=== PATIENT | female | born 1965 | race Caucasian/White ===

== ENCOUNTER 2018-03-09 17:55 | Inpatient (IN) | payer MEDICAID ==
[~2018-03-09] VITALS: Ht 160 cm; Wt 50.0 kg
[2018-03-09] MEDS ORDERED: ketorolac trometh. 30mg/ml inj. IV ONE (21:00)
[2018-03-09] MEDS ORDERED: famotidine/PF 10 mg/ml inj IV ONE (21:00)
[2018-03-09] MEDS ORDERED: metoclopramide 5 mg/ml inj IV ONE (21:00)
[2018-03-09] MEDS ORDERED: normal saline 1000ML IV soln IVB ONE (21:00)
[2018-03-09] MEDS ORDERED: diphenhydrAMINE 50 mg/ml inj IV ONE (21:00)
[2018-03-09] MEDS ORDERED: albuterol 2.5 MG/3 ML nebule NEB ONE (21:00)
[2018-03-09 21:33] LABS: BASOPHILS # (AUTO) 0.1 X10'3 (0-0.2); BASOPHILS % (AUTO) 1.7 % (0-1); EOSINOPHILS # (AUTO) 0.1 X10'3 (0-0.9); EOSINOPHILS % (AUTO) 2.4 % (0-6); HEMATOCRIT 33.4 % (35.0-45.0); HEMOGLOBIN 11.8 g/dl (12.0-16.0); LYMPHOCYTES # (AUTO) 0.6 X10'3 (1.1-4.8); LYMPHOCYTES % (AUTO) 18.6 % (21-51); MEAN CORPUSCULAR HGB CONC 35.5 % (33.0-36.5); MEAN PLATELET VOLUME 6.5 FL (7.4-10.4); MONOCYTES # (AUTO) 0.4 X10'3 (0-0.9); NEUTROPHILS # (AUTO) 2.1 X10'3 (1.8-7.7); NEUTROPHILS % (AUTO) 64.3 % (42-75); PLATELET COUNT 261 X10'3 (140-440); RED BLOOD COUNT 3.59 X10'6 (4.20-5.60); RED CELL DISTRIBUTION WIDTH 11.9 % (11.5-14.5); WHITE BLOOD COUNT 3.3 X10'3 (4.5-11.0)
[2018-03-09 21:46] LABS: ALANINE AMINOTRANSFERASE 29 U/L (12-78); ALBUMIN 3.9 G/DL (3.4-5.0); ALBUMIN/GLOBULIN RATIO 1.2 (1.1-1.5); ALKALINE PHOSPHATASE 66 IU/L (46-116); ANION GAP 7 (8-16); ASPARTATE AMINO TRANSFERASE 24 U/L (10-37); BLOOD UREA NITROGEN 7 MG/DL (7-18); BUN/CREATININE RATIO 14.3 (6.6-38.0); CALCIUM 9.1 MG/DL (8.5-10.1); CHLORIDE 90 MMOL/L (99-107); CREATININE 0.49 MG/DL (0.40-0.90); GLUCOSE 98 MG/DL (70-104); POTASSIUM 4.1 MMOL/L (3.5-5.1); SODIUM 124 MMOL/L (135-145); TOTAL CARBON DIOXIDE 27.1 MMOL/L (24-32); TOTAL PROTEIN 7.1 G/DL (6.4-8.2); eGFR > 90 ML/MIN
[2018-03-09] MEDS: normal saline 1000ml 1,000 ML IV SCH (22:28)
[2018-03-09] MEDS ORDERED: diphenhydrAMINE 25mg capsule PO PRN (22:30)
[2018-03-09] MEDS ORDERED: thiamine 100mg/ml 2ml inj. IV ONE (22:30)
[2018-03-09] MEDS ORDERED: haloperidol lactate 5mg/ml inj IM PRN (22:30)
[2018-03-09] MEDS ORDERED: LORazepam 1 MG tablet PO PRN (22:30)
[2018-03-09] MEDS ORDERED: haloperidol 5mg tablet PO PRN (22:30)
[2018-03-09] MEDS ORDERED: diphenhydrAMINE 50 mg/ml inj IV PRN (22:30)
[2018-03-09] MEDS ORDERED: HYDROmorphone inj. 0.5 MG/0.5 ML DISP.SYRIN IV PRN ×2 (22:30)
[2018-03-09] MEDS ORDERED: magnesium hydroxide 30ml (MOM) UD suspension PO PRN (22:30)
[2018-03-09] MEDS ORDERED: mag hydrox/Alum hydrox/simeth 30ml oral suspension PO PRN (22:30)
[2018-03-09] MEDS ORDERED: acetaminophen 325mg tablet PO PRN (22:30)
[2018-03-09] MEDS ORDERED: dextrose 50%-water 50ml dispensing syringe IV PRN (22:30)
[2018-03-09] MEDS ORDERED: loperamide 2mg capsule PO PRN ×2 (22:30)
[2018-03-09] MEDS ORDERED: morphine 4 MG/ML inj SYRINge IV PRN ×2 (22:30)
[2018-03-09] MEDS ORDERED: cloNIDine 0.1 mg tablet PO PRN (22:30)
[2018-03-09] MEDS ORDERED: acetaminophen 650mg rectal suppository RC PRN (22:30)
[2018-03-09] MEDS ORDERED: dicyclomine 10 MG capsule PO PRN (22:30)
[2018-03-09] MEDS ORDERED: cyclobenzaprine 10mg tablet PO PRN (22:30)
[2018-03-09] MEDS ORDERED: bisacodyl 10mg suppository rectal RC PRN (22:30)
[2018-03-09 22:58] LABS: PARTIAL THROMBOPLASTIN TIME 26 SECONDS (22-32); PROTHROMBIN TIME 10.2 SECONDS (9.0-12.0)
[2018-03-09 23:01] LABS: HEMOGLOBIN A1C 4.9 % (4.5-6.2)
[2018-03-09] MEDS ORDERED: CLON-528 PO (23:02)
[2018-03-09] MEDS ORDERED: CITA-278 PO (23:02)
[2018-03-09] MEDS ORDERED: TRAZ-143 PO (23:02)
[2018-03-09 23:10] LABS: ETHANOL < 0.010 GM/DL (0.0-0.010); LIPASE 208 U/L (73-393); MAGNESIUM 1.8 MG/DL (1.5-2.4); PHOSPHORUS 4.3 MG/DL (2.3-4.5); TROPONIN I < 0.04 NG/ML (0.0-0.05)
[2018-03-09 23:30] VITALS: BP 174/97
[2018-03-09] MEDS: nicotine 21mg patch - 24 hr TD SCH (23:52)
[2018-03-09] MEDS: LORazepam 2 mg/ml vial IV PRN (23:52)
[2018-03-10 04:39] LABS: BASOPHILS % (AUTO) 1.1 % (0-1); EOSINOPHILS # (AUTO) 0.1 X10'3 (0-0.9); EOSINOPHILS % (AUTO) 3.2 % (0-6); HEMATOCRIT 34.3 % (35.0-45.0); LYMPHOCYTES # (AUTO) 0.8 X10'3 (1.1-4.8); LYMPHOCYTES % (AUTO) 21.5 % (21-51); MEAN CORPUSCULAR HEMOGLOBIN 32.8 PG (27.0-31.0); MEAN CORPUSCULAR HGB CONC 34.9 % (33.0-36.5); MEAN CORPUSCULAR VOLUME 93.9 FL (78-98); MEAN PLATELET VOLUME 6.7 FL (7.4-10.4); MONOCYTES # (AUTO) 0.4 X10'3 (0-0.9); MONOCYTES % (AUTO) 10.4 % (2-12); NEUTROPHILS # (AUTO) 2.2 X10'3 (1.8-7.7); NEUTROPHILS % (AUTO) 63.8 % (42-75); PLATELET COUNT 244 X10'3 (140-440); RED BLOOD COUNT 3.65 X10'6 (4.20-5.60); WHITE BLOOD COUNT 3.5 X10'3 (4.5-11.0)
[2018-03-10 05:13] LABS: ALANINE AMINOTRANSFERASE 25 U/L (12-78); ALBUMIN 3.6 G/DL (3.4-5.0); ALBUMIN/GLOBULIN RATIO 1.2 (1.1-1.5); ALKALINE PHOSPHATASE 64 IU/L (46-116); AMYLASE 65 U/L (25-115); ANION GAP 8 (8-16); ASPARTATE AMINO TRANSFERASE 23 U/L (10-37); BILIRUBIN,TOTAL 1.2 MG/DL (0.1-1.0); BLOOD UREA NITROGEN 7 MG/DL (7-18); BUN/CREATININE RATIO 12.7 (6.6-38.0); CALCIUM 8.9 MG/DL (8.5-10.1); CHLORIDE 94 MMOL/L (99-107); CREATININE 0.55 MG/DL (0.40-0.90); GLUCOSE 97 MG/DL (70-104); POTASSIUM 3.4 MMOL/L (3.5-5.1); SODIUM 129 MMOL/L (135-145); TOTAL CARBON DIOXIDE 27.5 MMOL/L (24-32); TOTAL PROTEIN 6.5 G/DL (6.4-8.2); eGFR > 90 ML/MIN
[2018-03-10] MEDS ORDERED: potassium Cl 40MEQ/NS 500ml 500 ML IV PRN ×2 (05:50)
[2018-03-10] MEDS ORDERED: potassium Cl 20 mEq SR tablet PO PRN (05:50)
[2018-03-10 07:01] VITALS: BP 162/98
[2018-03-10] MEDS: multivitamins, therapeutics tablet PO SCH (07:16)
[2018-03-10] MEDS: nicotine 21mg patch - 24 hr TD SCH (07:16)
[2018-03-10] MEDS: folic acid 1mg tablet PO SCH (07:16)
[2018-03-10] MEDS: HYDROcodone/acetaminophen 5mg/325mg tablet PO PRN ×2 (07:29→11:14)
[2018-03-10] MEDS ORDERED: azithromycin 250mg tablet PO SCH (08:00)
[2018-03-10] MEDS: K and/or MAG REPLACEMENT MC SCH (08:00)
[2018-03-10] MEDS ORDERED: docusate sod 100mg capsule PO SCH (08:00)
[2018-03-10] MEDS ORDERED: methylPREDNISolone sod succ 125mg/2ml vial IV SCH (08:00)
[2018-03-10] MEDS: normal saline 1000ml 1,000 ML IV SCH ×2 (09:10→17:25)
[2018-03-10] MEDS: potassium Cl 20 mEq SR tablet PO PRN ×3 (09:10→17:25)
[2018-03-10] MEDS ORDERED: cloNIDine 0.1 mg tablet PO PRN (09:40)
[2018-03-10] MEDS: LORazepam 2 mg/ml vial IV PRN ×3 (11:13→19:05)
[2018-03-10 11:58] VITALS: BP 152/96
[2018-03-10] MEDS: clonazePAM 0.5mg tablet PO SCH ×2 (12:10→21:02)
[2018-03-10] MEDS: HYDROcodone/acetaminophen 10/325mg tab PO PRN ×3 (15:18→23:15)
[2018-03-10] MEDS: ondansetron/PF 4mg/2ml inj IV PRN (17:26)
[2018-03-10 20:00] VITALS: BP 164/97
[2018-03-10] MEDS: temazepam 15mg capsule PO PRN ×2 (21:02→23:15)
[2018-03-11 00:18] VITALS: BP 151/85
[2018-03-11] MEDS: normal saline 1000ml 1,000 ML IV SCH (04:28)
[2018-03-11 05:42] LABS: BASOPHILS % (AUTO) 0.5 % (0-1); HEMATOCRIT 31.5 % (35.0-45.0); LYMPHOCYTES # (AUTO) 0.8 X10'3 (1.1-4.8); LYMPHOCYTES % (AUTO) 17.1 % (21-51); MEAN CORPUSCULAR HEMOGLOBIN 33.2 PG (27.0-31.0); MEAN CORPUSCULAR VOLUME 94.7 FL (78-98); MEAN PLATELET VOLUME 7.2 FL (7.4-10.4); MONOCYTES # (AUTO) 0.5 X10'3 (0-0.9); NEUTROPHILS # (AUTO) 3.1 X10'3 (1.8-7.7); NEUTROPHILS % (AUTO) 69.4 % (42-75); PLATELET COUNT 217 X10'3 (140-440); RED BLOOD COUNT 3.32 X10'6 (4.20-5.60); RED CELL DISTRIBUTION WIDTH 11.9 % (11.5-14.5); WHITE BLOOD COUNT 4.5 X10'3 (4.5-11.0)
[2018-03-11 06:23] LABS: ALANINE AMINOTRANSFERASE 23 U/L (12-78); ALBUMIN 3.3 G/DL (3.4-5.0); ALBUMIN/GLOBULIN RATIO 1.1 (1.1-1.5); ALKALINE PHOSPHATASE 60 IU/L (46-116); AMYLASE 70 U/L (25-115); ANION GAP 8 (8-16); ASPARTATE AMINO TRANSFERASE 17 U/L (10-37); BILIRUBIN,TOTAL 0.9 MG/DL (0.1-1.0); BLOOD UREA NITROGEN 7 MG/DL (7-18); BUN/CREATININE RATIO 14.3 (6.6-38.0); CALCIUM 8.6 MG/DL (8.5-10.1); CHLORIDE 101 MMOL/L (99-107); CREATININE 0.49 MG/DL (0.40-0.90); GLUCOSE 102 MG/DL (70-104); SODIUM 135 MMOL/L (135-145); TOTAL CARBON DIOXIDE 26.2 MMOL/L (24-32); TOTAL PROTEIN 6.2 G/DL (6.4-8.2); eGFR > 90 ML/MIN
[2018-03-11 07:03] VITALS: BP 182/104
[2018-03-11] MEDS: clonazePAM 0.5mg tablet PO SCH (07:10)
[2018-03-11] MEDS: folic acid 1mg tablet PO SCH (07:10)
[2018-03-11] MEDS: HYDROcodone/acetaminophen 5mg/325mg tablet PO PRN ×2 (07:10→11:10)
[2018-03-11] MEDS: multivitamins, therapeutics tablet PO SCH (07:10)
[2018-03-11] MEDS: nicotine 21mg patch - 24 hr TD SCH (07:11)
[2018-03-11] MEDS: ondansetron/PF 4mg/2ml inj IV PRN (07:11)
[2018-03-11] MEDS: K and/or MAG REPLACEMENT MC SCH (07:21)
[2018-03-11 07:27] VITALS: BP 182/104
[2018-03-11] MEDS ORDERED: citalopram 20mg tablet PO SCH (08:00)
[2018-03-11 09:07] VITALS: BP 124/72
[2018-03-11] MEDS ORDERED: ONDA4TAB6 PO (09:51)
[2018-03-11 11:35] VITALS: BP 134/82
[2018-03-11] MEDS ORDERED: traZODone 50mg tablet PO SCH (21:00)
== END 2018-03-11 13:22 | disposition home or self-care (01) | DRG 249 ==
LOC: ER 17:56 → ED HOLD 22:28 → SUR 3N 23:20
PROVIDERS: ADMIT Family Medicine; ATTEND Internal Medicine
DX: A08.4 Viral intestinal infection, unspecified (principal); N17.9 Acute kidney failure, unspecified; E87.1 Hypo-osmolality and hyponatremia; J44.1 Chronic obstructive pulmonary disease with (acute) exacerbation; I10 Essential (primary) hypertension; E86.0 Dehydration; E87.6 Hypokalemia; F10.20 Alcohol dependence, uncomplicated; F17.200 Nicotine dependence, unspecified, uncomplicated; F41.9 Anxiety disorder, unspecified; G89.29 Other chronic pain; Z79.899 Other long term (current) drug therapy
CPT/HCPCS: 36415; 70450; 71045; 80053; 80320; 82150; 82948; 83036; 83605; 83690; 83735; 83880; 84100; 84443; 84484; 85025; 85610; 85730; 87040; 87070; 94640; 94760; 96361; 96374; 96375; 99285; J1200; J1885; J2060; J2405; J2765; J2930; J3411; J3490; J7030; Q0163

== ENCOUNTER 2018-07-28 18:27 | Inpatient (IN) | payer MEDICAID ==
[~2018-07-28] VITALS: Ht 160 cm; Wt 58.0 kg
[~2018-07-28 18:27] MED LIST: CITA-278 PO; CLON-528 PO; ONDA4TAB6 PO; TRAZ-218 PO
[2018-07-28 19:04] LABS: BASOPHILS % (AUTO) 0.1 % (0-1); EOSINOPHILS % (AUTO) 0.8 % (0-6); HEMOGLOBIN 13.2 g/dl (12.0-16.0); LYMPHOCYTES # (AUTO) 0.6 X10'3 (1.1-4.8); LYMPHOCYTES % (AUTO) 10.7 % (21-51); MEAN CORPUSCULAR HEMOGLOBIN 32.1 PG (27.0-31.0); MEAN CORPUSCULAR HGB CONC 35.7 % (33.0-36.5); MEAN PLATELET VOLUME 6.7 FL (7.4-10.4); MONOCYTES # (AUTO) 0.6 X10'3 (0-0.9); NEUTROPHILS # (AUTO) 4.3 X10'3 (1.8-7.7); NEUTROPHILS % (AUTO) 77.4 % (42-75); PLATELET COUNT 293 X10'3 (140-440); RED BLOOD COUNT 4.11 X10'6 (4.20-5.60); RED CELL DISTRIBUTION WIDTH 11.1 % (11.5-14.5); WHITE BLOOD COUNT 5.5 X10'3 (4.5-11.0)
[2018-07-28 19:59] LABS: ANION GAP 5 (8-16); BILIRUBIN,TOTAL 1.5 MG/DL (0.1-1.0); BLOOD UREA NITROGEN 6 MG/DL (7-18); BUN/CREATININE RATIO 11.1 (6.6-38.0); CALCIUM 9.4 MG/DL (8.5-10.1); CREATININE 0.54 MG/DL (0.40-0.90); GLUCOSE 103 MG/DL (70-104); TOTAL CARBON DIOXIDE 31.5 MMOL/L (24-32); TOTAL PROTEIN 7.3 G/DL (6.4-8.2); eGFR > 90 ML/MIN
[2018-07-28 20:00] LABS: ALANINE AMINOTRANSFERASE 54 U/L (12-78); ALBUMIN/GLOBULIN RATIO 1.2 (1.1-1.5); ALKALINE PHOSPHATASE 81 IU/L (46-116); ASPARTATE AMINO TRANSFERASE 80 U/L (10-37)
[2018-07-28 20:08] LABS: CHLORIDE 66 MMOL/L (99-107); POTASSIUM 2.7 MMOL/L (3.5-5.1); SODIUM 102 MMOL/L (135-145)
[2018-07-28] MEDS ORDERED: potassium Cl 10 mEq/100mL bag IV ONE (20:35)
[2018-07-28] MEDS ORDERED: normal saline 1000ml 1,000 ML IV ONE (20:40)
[2018-07-28] MEDS ORDERED: potassium Cl 20 mEq/100mL bag IV ONE (20:40)
[2018-07-28] MEDS ORDERED: normal saline 1000ml 500 ML IV ONE (20:44)
[2018-07-28] MEDS: potassium 10mEq/100ml NS w/LIDOcaine (10mg/bag) IV SCH ×2 (20:52→22:19)
[2018-07-28 21:16] LABS: URINE HCG NEGATIVE (NEG)
[2018-07-28 21:19] LABS: CLARITY,URINE CLEAR (Clear); COLOR,URINE YELLOW (Yellow); GLUCOSE, URINE NEGATIVE (Neg); KETONES,URINE NEGATIVE (Neg); LEUKOCYTE ESTERASE ,URINE NEGATIVE (Neg); NITRITES, URINE NEGATIVE (Neg); OCCULT BLOOD,URINE NEGATIVE (Neg); PH,URINE 5.5 (4.8-8.0); PROTEIN,URINE NEGATIVE (Neg); UROBILINOGEN,URINE 0.2 E.U/dL (0.2-1.0)
[2018-07-28 21:27] LABS: UA COLLECTION TYPE CLN CATCH MIDSTREAM
[2018-07-28] MEDS ORDERED: ondansetron 4mg rapidly disintigrating tab PO ONE (21:55)
[2018-07-28] MEDS ORDERED: HYDROmorphone 1 mg/ml syringe IV ONE (21:55)
[2018-07-28] MEDS ORDERED: ALBU18HF2 INH (22:13)
[2018-07-28] MEDS ORDERED: HCTZ25T (22:15)
[2018-07-28] MEDS ORDERED: IRBE150T51 PO (22:18)
[2018-07-28] MEDS ORDERED: GABA-532 PO (22:18)
[2018-07-28] MEDS ORDERED: IBUP-1984 PO (22:19)
[2018-07-29] VITALS (16 sets, daily range): BP systolic 120–183; BP diastolic 66–93
[2018-07-29] MEDS ORDERED: potassium 10mEq/100ml NS w/LIDOcaine (10mg/bag) IV ONE
[2018-07-29] MEDS ORDERED: LORazepam 2 mg/ml vial IV ONE
[2018-07-29] MEDS ORDERED: ondansetron/PF 4mg/2ml inj IV ONE
[2018-07-29 00:11] LABS: MAGNESIUM 1.5 MG/DL (1.5-2.4)
[2018-07-29] MEDS: magnesium 1gm/100ml D5W IVPB 100 ML IV SCH ×2 (00:11→01:14)
[2018-07-29 02:34] LABS: ALBUMIN 3.6 G/DL (3.4-5.0); ANION GAP 4 (8-16); BLOOD UREA NITROGEN 5 MG/DL (7-18); BUN/CREATININE RATIO 11.1 (6.6-38.0); CHLORIDE 70 MMOL/L (99-107); CREATININE 0.45 MG/DL (0.40-0.90); GLUCOSE 120 MG/DL (70-104); POTASSIUM 3.2 MMOL/L (3.5-5.1); TOTAL CARBON DIOXIDE 30.6 MMOL/L (24-32); eGFR > 90 ML/MIN
[2018-07-29 02:37] LABS: SODIUM 105 MMOL/L (135-145)
[2018-07-29] MEDS ORDERED: sodium chloride 3% IV.soln 100 ML IV ONE (04:30)
[2018-07-29] MEDS: K, MAG and/or Phos replacement - Verify level? MC SCH ×2 (04:35→08:00)
[2018-07-29] MEDS ORDERED: morphine 4 MG/ML inj SYRINge IV PRN (04:35)
[2018-07-29] MEDS ORDERED: potassium Cl 40MEQ/NS 500ml 500 ML IV PRN ×2 (04:35)
[2018-07-29] MEDS ORDERED: acetaminophen 325mg tablet PO PRN (04:35)
[2018-07-29] MEDS: normal saline 1000ml 1,000 ML IV SCH ×3 (06:02→17:26)
[2018-07-29] MEDS: morphine 2 MG/ML inj. syringe IV PRN ×4 (06:09→21:31)
[2018-07-29] MEDS: ondansetron/PF 4mg/2ml inj IV PRN ×3 (06:10→21:30)
[2018-07-29] MEDS: pantoprazole 40 MG vial IV SCH (08:20)
[2018-07-29 08:59] LABS: ALBUMIN 3.6 G/DL (3.4-5.0); ANION GAP 6 (8-16); BLOOD UREA NITROGEN 5 MG/DL (7-18); BUN/CREATININE RATIO 10.2 (6.6-38.0); CALCIUM 7.6 MG/DL (8.5-10.1); CHLORIDE 72 MMOL/L (99-107); CREATININE 0.49 MG/DL (0.40-0.90); GLUCOSE 106 MG/DL (70-104); TOTAL CARBON DIOXIDE 30.1 MMOL/L (24-32); eGFR > 90 ML/MIN
[2018-07-29 09:01] LABS: POTASSIUM 2.9 MMOL/L (3.5-5.1); SODIUM 108 MMOL/L (135-145)
[2018-07-29] MEDS: potassium Cl 20 mEq SR tablet PO PRN ×3 (09:16→23:57)
[2018-07-29] MEDS ORDERED: nicotine 21mg patch - 24 hr TD ONE (11:02)
[2018-07-29] MEDS ORDERED: sodium chloride 3% IV.soln 500 ML IV SCH ×2 (11:05→12:45)
[2018-07-29] MEDS ORDERED: thiamine inj. 100 MG in normal saline 100ml IV soln 100 ML IV ONE (11:30)
[2018-07-29 12:20] LABS: ALBUMIN 3.6 G/DL (3.4-5.0); ANION GAP 6 (8-16); BLOOD UREA NITROGEN 5 MG/DL (7-18); BUN/CREATININE RATIO 9.4 (6.6-38.0); CALCIUM 8.2 MG/DL (8.5-10.1); CHLORIDE 78 MMOL/L (99-107); CREATININE 0.53 MG/DL (0.40-0.90); GLUCOSE 105 MG/DL (70-104); POTASSIUM 3.2 MMOL/L (3.5-5.1); TOTAL CARBON DIOXIDE 29.8 MMOL/L (24-32); eGFR > 90 ML/MIN
[2018-07-29 12:22] LABS: SODIUM 114 MMOL/L (135-145)
[2018-07-29 12:24] LABS: PHOSPHORUS 2.5 MG/DL (2.3-4.5)
[2018-07-29 15:06] LABS: ALBUMIN 3.6 G/DL (3.4-5.0); ANION GAP 5 (8-16); BLOOD UREA NITROGEN 6 MG/DL (7-18); CALCIUM 8.3 MG/DL (8.5-10.1); CHLORIDE 82 MMOL/L (99-107); GLUCOSE 93 MG/DL (70-104); POTASSIUM 3.2 MMOL/L (3.5-5.1); eGFR > 90 ML/MIN
[2018-07-29 15:13] LABS: SODIUM 117 MMOL/L (135-145)
[2018-07-29 18:12] LABS: ALBUMIN 3.5 G/DL (3.4-5.0); AMYLASE 38 U/L (25-115); ANION GAP 7 (8-16); BLOOD UREA NITROGEN 6 MG/DL (7-18); BUN/CREATININE RATIO 11.5 (6.6-38.0); CALCIUM 8.4 MG/DL (8.5-10.1); CHLORIDE 84 MMOL/L (99-107); CREATININE 0.52 MG/DL (0.40-0.90); GLUCOSE 95 MG/DL (70-104); LIPASE 124 U/L (73-393); POTASSIUM 3.7 MMOL/L (3.5-5.1); TOTAL CARBON DIOXIDE 27.4 MMOL/L (24-32); eGFR > 90 ML/MIN
[2018-07-29 18:18] LABS: SODIUM 118 MMOL/L (135-145)
[2018-07-29] MEDS: albuterol 2.5 MG/3 ML nebule NEB PRN (19:07)
[2018-07-29] MEDS: gabapentin 300mg capsule PO SCH (19:59)
[2018-07-29] MEDS: LORazepam 1 MG tablet PO PRN (20:04)
[2018-07-29 20:48] LABS: ALBUMIN 3.3 G/DL (3.4-5.0); ANION GAP 5 (8-16); BLOOD UREA NITROGEN 7 MG/DL (7-18); CALCIUM 7.5 MG/DL (8.5-10.1); CHLORIDE 84 MMOL/L (99-107); CREATININE 0.54 MG/DL (0.40-0.90); GLUCOSE 122 MG/DL (70-104); TOTAL CARBON DIOXIDE 26.4 MMOL/L (24-32); eGFR > 90 ML/MIN
[2018-07-29 20:55] LABS: POTASSIUM 3.5 MMOL/L (3.5-5.1)
[2018-07-29 20:57] LABS: SODIUM 115 MMOL/L (135-145)
[2018-07-29] MEDS: traZODone 50mg tablet PO SCH (21:30)
[2018-07-29 23:30] LABS: ALBUMIN 3.2 G/DL (3.4-5.0); ANION GAP 6 (8-16); BLOOD UREA NITROGEN 6 MG/DL (7-18); BUN/CREATININE RATIO 12.2 (6.6-38.0); CALCIUM 7.9 MG/DL (8.5-10.1); CHLORIDE 86 MMOL/L (99-107); CREATININE 0.49 MG/DL (0.40-0.90); GLUCOSE 107 MG/DL (70-104); POTASSIUM 3.1 MMOL/L (3.5-5.1); TOTAL CARBON DIOXIDE 27.9 MMOL/L (24-32); eGFR > 90 ML/MIN
[2018-07-29 23:40] LABS: SODIUM 120 MMOL/L (135-145)
[2018-07-30 02:00] VITALS: BP 121/73
[2018-07-30] MEDS: normal saline 1000ml 1,000 ML IV SCH ×2 (03:03→16:32)
[2018-07-30 03:15] LABS: BASOPHILS % (AUTO) 0.4 % (0-1); EOSINOPHILS % (AUTO) 1.4 % (0-6); HEMATOCRIT 29.6 % (35.0-45.0); HEMOGLOBIN 10.5 g/dl (12.0-16.0); LYMPHOCYTES # (AUTO) 0.4 X10'3 (1.1-4.8); LYMPHOCYTES % (AUTO) 14.1 % (21-51); MEAN CORPUSCULAR HEMOGLOBIN 31.5 PG (27.0-31.0); MEAN CORPUSCULAR HGB CONC 35.5 % (33.0-36.5); MEAN CORPUSCULAR VOLUME 88.7 FL (78-98); MEAN PLATELET VOLUME 7.3 FL (7.4-10.4); MONOCYTES # (AUTO) 0.4 X10'3 (0-0.9); MONOCYTES % (AUTO) 11.3 % (2-12); NEUTROPHILS # (AUTO) 2.3 X10'3 (1.8-7.7); NEUTROPHILS % (AUTO) 72.8 % (42-75); PLATELET COUNT 177 X10'3 (140-440); RED BLOOD COUNT 3.34 X10'6 (4.20-5.60); RED CELL DISTRIBUTION WIDTH 11.3 % (11.5-14.5); WHITE BLOOD COUNT 3.1 X10'3 (4.5-11.0)
[2018-07-30 03:30] LABS: ALANINE AMINOTRANSFERASE 55 U/L (12-78); ALBUMIN 3.1 G/DL (3.4-5.0); ALBUMIN/GLOBULIN RATIO 1.1 (1.1-1.5); ALKALINE PHOSPHATASE 70 IU/L (46-116); AMYLASE 32 U/L (25-115); ANION GAP 6 (8-16); ASPARTATE AMINO TRANSFERASE 58 U/L (10-37); BILIRUBIN,TOTAL 1.2 MG/DL (0.1-1.0); BLOOD UREA NITROGEN 6 MG/DL (7-18); BUN/CREATININE RATIO 12.8 (6.6-38.0); CALCIUM 7.9 MG/DL (8.5-10.1); CHLORIDE 89 MMOL/L (99-107); CREATININE 0.47 MG/DL (0.40-0.90); GLUCOSE 103 MG/DL (70-104); LIPASE 103 U/L (73-393); MAGNESIUM 1.8 MG/DL (1.5-2.4); PHOSPHORUS 2.8 MG/DL (2.3-4.5); POTASSIUM 3.5 MMOL/L (3.5-5.1); PROTHROMBIN TIME 10.5 SECONDS (9.0-12.0); SODIUM 124 MMOL/L (135-145); TOTAL CARBON DIOXIDE 29.1 MMOL/L (24-32); TOTAL PROTEIN 5.8 G/DL (6.4-8.2); eGFR > 90 ML/MIN
[2018-07-30 06:00] VITALS: BP 110/56
[2018-07-30 07:14] LABS: ALBUMIN 3.1 G/DL (3.4-5.0); ANION GAP 5 (8-16); BLOOD UREA NITROGEN 5 MG/DL (7-18); BUN/CREATININE RATIO 10.4 (6.6-38.0); CALCIUM 8.4 MG/DL (8.5-10.1); CHLORIDE 92 MMOL/L (99-107); CREATININE 0.48 MG/DL (0.40-0.90); GLUCOSE 97 MG/DL (70-104); POTASSIUM 3.6 MMOL/L (3.5-5.1); SODIUM 125 MMOL/L (135-145); TOTAL CARBON DIOXIDE 28.2 MMOL/L (24-32); eGFR > 90 ML/MIN
[2018-07-30] MEDS: gabapentin 300mg capsule PO SCH ×2 (07:37→19:58)
[2018-07-30] MEDS: nicotine 21mg patch - 24 hr TD SCH (07:38)
[2018-07-30] MEDS: citalopram 20mg tablet PO SCH (07:38)
[2018-07-30] MEDS: losartan 50mg tablet PO SCH (07:38)
[2018-07-30] MEDS: pantoprazole 40 MG vial IV SCH (07:38)
[2018-07-30] MEDS: K, MAG and/or Phos replacement - Verify level? MC SCH (08:00)
[2018-07-30] MEDS ORDERED: folic acid inj. 2 MG, thiamine inj. 100 MG, MVI, adult No.4 with vit. K 10 ML in dextro... IV SCH ×4 (08:00)
[2018-07-30] MEDS: morphine 2 MG/ML inj. syringe IV PRN ×3 (09:15→19:57)
[2018-07-30 09:57] LABS: ANION GAP 6 (8-16); BLOOD UREA NITROGEN 7 MG/DL (7-18); BUN/CREATININE RATIO 13.5 (6.6-38.0); CHLORIDE 92 MMOL/L (99-107); CREATININE 0.52 MG/DL (0.40-0.90); GLUCOSE 106 MG/DL (70-104); POTASSIUM 3.5 MMOL/L (3.5-5.1); SODIUM 123 MMOL/L (135-145); TOTAL CARBON DIOXIDE 24.6 MMOL/L (24-32); eGFR > 90 ML/MIN
[2018-07-30] MEDS ORDERED: thiamine inj. 100 MG, magnesium sulf injection 2 GM, MVI, adult No.4 with vit. K 10 ML ... IV SCH ×8 (10:10→10:20)
[2018-07-30] MEDS ORDERED: folic acid inj. 2 MG, thiamine inj. 100 MG, MVI, adult No.4 with vit. K 10 ML in dextro... IV ONE ×4 (10:30)
[2018-07-30] MEDS: acetaminophen 325mg tablet PO PRN (11:10)
[2018-07-30] MEDS: albuterol 2.5 MG/3 ML nebule NEB PRN ×2 (11:31→19:26)
[2018-07-30 12:00] VITALS: BP 109/52
[2018-07-30 12:41] LABS: ALBUMIN 3.5 G/DL (3.4-5.0); ANION GAP 8 (8-16); BLOOD UREA NITROGEN 6 MG/DL (7-18); BUN/CREATININE RATIO 9.8 (6.6-38.0); CALCIUM 8.8 MG/DL (8.5-10.1); CHLORIDE 90 MMOL/L (99-107); CREATININE 0.61 MG/DL (0.40-0.90); GLUCOSE 138 MG/DL (70-104); POTASSIUM 3.5 MMOL/L (3.5-5.1); SODIUM 123 MMOL/L (135-145); TOTAL CARBON DIOXIDE 25.4 MMOL/L (24-32); eGFR > 90 ML/MIN
[2018-07-30 14:10] LABS: ALBUMIN 3.1 G/DL (3.4-5.0); ANION GAP 8 (8-16); BLOOD UREA NITROGEN 8 MG/DL (7-18); BUN/CREATININE RATIO 7.3 (6.6-38.0); CALCIUM 7.7 MG/DL (8.5-10.1); CHLORIDE 89 MMOL/L (99-107); CREATININE 1.09 MG/DL (0.40-0.90); GLUCOSE 159 MG/DL (70-104); POTASSIUM 3.4 MMOL/L (3.5-5.1); SODIUM 121 MMOL/L (135-145); TOTAL CARBON DIOXIDE 23.7 MMOL/L (24-32); eGFR 52 ML/MIN
[2018-07-30 15:56] VITALS: BP 120/74
[2018-07-30] MEDS: LORazepam 1 MG tablet PO PRN ×2 (16:32→19:58)
[2018-07-30 18:00] VITALS: BP 122/64
[2018-07-30] MEDS: potassium Cl 20 mEq SR tablet PO PRN (19:58)
[2018-07-30] MEDS: traZODone 50mg tablet PO SCH (19:58)
[2018-07-30 22:00] VITALS: BP 95/50
[2018-07-31 02:00] VITALS: BP 113/70
[2018-07-31 06:00] VITALS: BP 144/66
[2018-07-31 07:02] LABS: PROTHROMBIN TIME 10.1 SECONDS (9.0-12.0)
[2018-07-31 07:07] LABS: ANION GAP 7 (8-16); BLOOD UREA NITROGEN 8 MG/DL (7-18); BUN/CREATININE RATIO 16.7 (6.6-38.0); CHLORIDE 97 MMOL/L (99-107); CREATININE 0.48 MG/DL (0.40-0.90); GLUCOSE 110 MG/DL (70-104); MAGNESIUM 1.7 MG/DL (1.5-2.4); SODIUM 127 MMOL/L (135-145); TOTAL CARBON DIOXIDE 23.1 MMOL/L (24-32); eGFR > 90 ML/MIN
[2018-07-31 07:08] LABS: ALANINE AMINOTRANSFERASE 47 U/L (12-78); ALBUMIN 2.9 G/DL (3.4-5.0); ALKALINE PHOSPHATASE 64 IU/L (46-116); AMYLASE 43 U/L (25-115); BILIRUBIN,TOTAL 0.7 MG/DL (0.1-1.0); LIPASE 134 U/L (73-393); TOTAL PROTEIN 5.8 G/DL (6.4-8.2)
[2018-07-31 07:09] LABS: ASPARTATE AMINO TRANSFERASE 43 U/L (10-37); POTASSIUM 3.9 MMOL/L (3.5-5.1)
[2018-07-31 07:57] LABS: BASOPHILS % (AUTO) 0.4 % (0-1); EOSINOPHILS # (AUTO) 0.1 X10'3 (0-0.9); EOSINOPHILS % (AUTO) 4.5 % (0-6); HEMATOCRIT 30.8 % (35.0-45.0); HEMOGLOBIN 10.7 g/dl (12.0-16.0); LYMPHOCYTES # (AUTO) 0.4 X10'3 (1.1-4.8); LYMPHOCYTES % (AUTO) 16.4 % (21-51); MEAN CORPUSCULAR HEMOGLOBIN 31.5 PG (27.0-31.0); MEAN CORPUSCULAR HGB CONC 34.6 % (33.0-36.5); MEAN CORPUSCULAR VOLUME 90.9 FL (78-98); MEAN PLATELET VOLUME 6.8 FL (7.4-10.4); MONOCYTES # (AUTO) 0.4 X10'3 (0-0.9); MONOCYTES % (AUTO) 15.6 % (2-12); NEUTROPHILS # (AUTO) 1.6 X10'3 (1.8-7.7); NEUTROPHILS % (AUTO) 63.1 % (42-75); PLATELET COUNT 197 X10'3 (140-440); RED BLOOD COUNT 3.39 X10'6 (4.20-5.60); RED CELL DISTRIBUTION WIDTH 11.8 % (11.5-14.5)
[2018-07-31 07:58] LABS: WHITE BLOOD COUNT 2.6 X10'3 (4.5-11.0)
[2018-07-31] MEDS: K, MAG and/or Phos replacement - Verify level? MC SCH (08:00)
[2018-07-31] MEDS ORDERED: folic acid inj. 2 MG, thiamine inj. 100 MG, MVI, adult No.4 with vit. K 10 ML in dextro... IV SCH ×4 (08:00)
[2018-07-31 08:14] LABS: TOTAL CELLS COUNTED 100
[2018-07-31 08:15] LABS: PLATELET ESTIMATE NORMAL
[2018-07-31] MEDS: gabapentin 300mg capsule PO SCH ×2 (08:21→20:32)
[2018-07-31] MEDS: citalopram 20mg tablet PO SCH (08:21)
[2018-07-31] MEDS: losartan 50mg tablet PO SCH (08:21)
[2018-07-31] MEDS: pantoprazole 40mg Tablet.DR PO SCH (08:21)
[2018-07-31] MEDS: nicotine 21mg patch - 24 hr TD SCH (08:22)
[2018-07-31] MEDS: morphine 2 MG/ML inj. syringe IV PRN ×3 (08:31→20:39)
[2018-07-31] MEDS: normal saline 1000ml 1,000 ML IV SCH ×2 (08:37→18:37)
[2018-07-31 11:00] VITALS: BP 146/76
[2018-07-31] MEDS: LORazepam 1 MG tablet PO PRN ×2 (13:06→20:34)
[2018-07-31] MEDS: albuterol 2.5 MG/3 ML nebule NEB PRN ×2 (13:13→20:04)
[2018-07-31 15:00] VITALS: BP 147/90
[2018-07-31 15:49] LABS: TOTAL PROTEIN,URINE RANDOM 9.7 MG/DL
[2018-07-31 18:00] VITALS: BP 144/87
[2018-07-31] MEDS: traZODone 50mg tablet PO SCH (20:32)
[2018-07-31 22:00] VITALS: BP 116/66
[2018-08-01] MEDS: normal saline 1000ml 1,000 ML IV SCH ×2 (05:25→16:02)
[2018-08-01 05:45] LABS: BASOPHILS % (AUTO) 0.7 % (0-1); EOSINOPHILS # (AUTO) 0.4 X10'3 (0-0.9); EOSINOPHILS % (AUTO) 12.4 % (0-6); HEMATOCRIT 29.2 % (35.0-45.0); LYMPHOCYTES # (AUTO) 0.5 X10'3 (1.1-4.8); LYMPHOCYTES % (AUTO) 18.3 % (21-51); MEAN CORPUSCULAR HEMOGLOBIN 31.4 PG (27.0-31.0); MEAN CORPUSCULAR HGB CONC 34.2 % (33.0-36.5); MEAN CORPUSCULAR VOLUME 91.8 FL (78-98); MEAN PLATELET VOLUME 7.2 FL (7.4-10.4); MONOCYTES # (AUTO) 0.4 X10'3 (0-0.9); MONOCYTES % (AUTO) 13.2 % (2-12); NEUTROPHILS # (AUTO) 1.6 X10'3 (1.8-7.7); NEUTROPHILS % (AUTO) 55.4 % (42-75); PLATELET COUNT 189 X10'3 (140-440); RED BLOOD COUNT 3.18 X10'6 (4.20-5.60); RED CELL DISTRIBUTION WIDTH 11.6 % (11.5-14.5); WHITE BLOOD COUNT 2.9 X10'3 (4.5-11.0)
[2018-08-01 05:59] LABS: PROTHROMBIN TIME 10.3 SECONDS (9.0-12.0)
[2018-08-01 06:00] VITALS: BP 144/84
[2018-08-01 06:13] LABS: PLATELET ESTIMATE NORMAL; TOTAL CELLS COUNTED 100
[2018-08-01 06:23] LABS: ALANINE AMINOTRANSFERASE 38 U/L (12-78); ALBUMIN 2.8 G/DL (3.4-5.0); ALKALINE PHOSPHATASE 57 IU/L (46-116); AMYLASE 46 U/L (25-115); ANION GAP 7 (8-16); ASPARTATE AMINO TRANSFERASE 27 U/L (10-37); BILIRUBIN,TOTAL 0.5 MG/DL (0.1-1.0); BLOOD UREA NITROGEN 6 MG/DL (7-18); BUN/CREATININE RATIO 14.3 (6.6-38.0); CALCIUM 8.4 MG/DL (8.5-10.1); CHLORIDE 100 MMOL/L (99-107); CREATININE 0.42 MG/DL (0.40-0.90); GLUCOSE 101 MG/DL (70-104); LIPASE 133 U/L (73-393); MAGNESIUM 1.6 MG/DL (1.5-2.4); PHOSPHORUS 3.4 MG/DL (2.3-4.5); POTASSIUM 3.3 MMOL/L (3.5-5.1); SODIUM 131 MMOL/L (135-145); TOTAL CARBON DIOXIDE 23.9 MMOL/L (24-32); TOTAL PROTEIN 5.5 G/DL (6.4-8.2); eGFR > 90 ML/MIN
[2018-08-01] MEDS: K, MAG and/or Phos replacement - Verify level? MC SCH (07:47)
[2018-08-01] MEDS: nicotine 21mg patch - 24 hr TD SCH (08:01)
[2018-08-01] MEDS: citalopram 20mg tablet PO SCH (08:02)
[2018-08-01] MEDS: potassium Cl 20 mEq SR tablet PO PRN ×3 (08:02→20:43)
[2018-08-01] MEDS: folic acid 1mg tablet PO SCH ×2 (08:03→20:42)
[2018-08-01] MEDS: losartan 50mg tablet PO SCH (08:03)
[2018-08-01] MEDS: thiamine 100mg tablet PO SCH (08:03)
[2018-08-01] MEDS: pantoprazole 40mg Tablet.DR PO SCH (08:03)
[2018-08-01] MEDS: multivitamins, therapeutics tablet PO SCH (08:03)
[2018-08-01] MEDS: gabapentin 300mg capsule PO SCH ×2 (08:03→20:43)
[2018-08-01] MEDS: morphine 2 MG/ML inj. syringe IV PRN ×3 (09:18→19:22)
[2018-08-01] MEDS: albuterol 2.5 MG/3 ML nebule NEB PRN ×2 (10:35→19:03)
[2018-08-01 11:00] VITALS: BP 148/78
[2018-08-01] MEDS: LORazepam 1 MG tablet PO SCH ×2 (12:37→20:43)
[2018-08-01 15:00] VITALS: BP 166/96
[2018-08-01 19:00] VITALS: BP 92/50
[2018-08-01] MEDS: traZODone 50mg tablet PO SCH (20:43)
[2018-08-01] MEDS: acetaminophen 325mg tablet PO PRN (20:47)
[2018-08-01 22:48] VITALS: BP 142/82
[2018-08-02] MEDS: normal saline 1000ml 1,000 ML IV SCH ×2 (00:04→09:57)
[2018-08-02] MEDS: morphine 2 MG/ML inj. syringe IV PRN ×2 (02:22→07:52)
[2018-08-02 03:00] VITALS: BP 136/94
[2018-08-02 06:00] VITALS: BP 151/85
[2018-08-02 06:40] LABS: BASOPHILS % (AUTO) 0.8 % (0-1); EOSINOPHILS # (AUTO) 0.3 X10'3 (0-0.9); EOSINOPHILS % (AUTO) 10.8 % (0-6); HEMATOCRIT 28.6 % (35.0-45.0); HEMOGLOBIN 9.8 g/dl (12.0-16.0); LYMPHOCYTES # (AUTO) 0.6 X10'3 (1.1-4.8); LYMPHOCYTES % (AUTO) 24.6 % (21-51); MEAN CORPUSCULAR HEMOGLOBIN 31.4 PG (27.0-31.0); MEAN CORPUSCULAR HGB CONC 34.3 % (33.0-36.5); MEAN CORPUSCULAR VOLUME 91.4 FL (78-98); MEAN PLATELET VOLUME 7.2 FL (7.4-10.4); MONOCYTES # (AUTO) 0.4 X10'3 (0-0.9); MONOCYTES % (AUTO) 15.8 % (2-12); NEUTROPHILS # (AUTO) 1.2 X10'3 (1.8-7.7); PLATELET COUNT 215 X10'3 (140-440); RED BLOOD COUNT 3.12 X10'6 (4.20-5.60); RED CELL DISTRIBUTION WIDTH 11.7 % (11.5-14.5); WHITE BLOOD COUNT 2.6 X10'3 (4.5-11.0)
[2018-08-02 06:50] LABS: PROTHROMBIN TIME 10.3 SECONDS (9.0-12.0)
[2018-08-02 06:57] LABS: ALANINE AMINOTRANSFERASE 35 U/L (12-78); ALBUMIN 2.9 G/DL (3.4-5.0); ALBUMIN/GLOBULIN RATIO 1.1 (1.1-1.5); ALKALINE PHOSPHATASE 50 IU/L (46-116); AMYLASE 49 U/L (25-115); ANION GAP 5 (8-16); ASPARTATE AMINO TRANSFERASE 22 U/L (10-37); BILIRUBIN,TOTAL 0.4 MG/DL (0.1-1.0); BLOOD UREA NITROGEN 5 MG/DL (7-18); BUN/CREATININE RATIO 11.6 (6.6-38.0); CALCIUM 8.6 MG/DL (8.5-10.1); CHLORIDE 101 MMOL/L (99-107); CREATININE 0.43 MG/DL (0.40-0.90); GLUCOSE 100 MG/DL (70-104); LIPASE 123 U/L (73-393); MAGNESIUM 1.5 MG/DL (1.5-2.4); PHOSPHORUS 3.8 MG/DL (2.3-4.5); POTASSIUM 4.3 MMOL/L (3.5-5.1); SODIUM 133 MMOL/L (135-145); TOTAL CARBON DIOXIDE 26.8 MMOL/L (24-32); TOTAL PROTEIN 5.6 G/DL (6.4-8.2); eGFR > 90 ML/MIN
[2018-08-02] MEDS: LORazepam 1 MG tablet PO SCH (07:51)
[2018-08-02] MEDS: citalopram 20mg tablet PO SCH (07:51)
[2018-08-02] MEDS: gabapentin 300mg capsule PO SCH (07:51)
[2018-08-02] MEDS: folic acid 1mg tablet PO SCH (07:51)
[2018-08-02] MEDS: losartan 50mg tablet PO SCH (07:51)
[2018-08-02] MEDS: multivitamins, therapeutics tablet PO SCH (07:51)
[2018-08-02] MEDS: pantoprazole 40mg Tablet.DR PO SCH (07:51)
[2018-08-02] MEDS: thiamine 100mg tablet PO SCH (07:51)
[2018-08-02] MEDS: nicotine 21mg patch - 24 hr TD SCH (07:52)
[2018-08-02] MEDS: K, MAG and/or Phos replacement - Verify level? MC SCH (08:00)
[2018-08-02 09:18] LABS: TOTAL CELLS COUNTED 100
[2018-08-02 09:19] LABS: PLATELET ESTIMATE NORMAL
[2018-08-02] MEDS: acetaminophen 325mg tablet PO PRN (10:43)
[2018-08-02 11:00] VITALS: BP 152/86
== END 2018-08-02 13:30 | disposition home or self-care (01) | DRG 426 ==
LOC: ER 18:27 → ED HOLD 07-29 04:33 → CICU 2S 07-29 05:27 → PCU 3S 07-29 17:45
PROVIDERS: ADMIT Internal Medicine Critical Care Medicine; ATTEND Internal Medicine Critical Care Medicine
DX: E87.1 Hypo-osmolality and hyponatremia (principal); E46 Unspecified protein-calorie malnutrition; E87.6 Hypokalemia; R19.7 Diarrhea, unspecified; F10.20 Alcohol dependence, uncomplicated; M54.9 Dorsalgia, unspecified; T50.2X5A Adverse effect of carbonic-anhydrase inhibitors, benzothiadiazides and other diuretics, initial encounter; F32.9 Major depressive disorder, single episode, unspecified; G89.29 Other chronic pain; F17.210 Nicotine dependence, cigarettes, uncomplicated; Z85.819 Personal history of malignant neoplasm of unspecified site of lip, oral cavity, and pharynx; Z79.899 Other long term (current) drug therapy; Z68.22 Body mass index [BMI] 22.0-22.9, adult; Y92.89 Other specified places as the place of occurrence of the external cause
CPT/HCPCS: 36415; 71046; 80048; 80053; 81003; 81025; 82150; 82533; 82570; 82948; 83690; 83735; 83930; 83935; 84100; 84156; 84300; 85025; 85610; 87070; 94640; 94760; 97116; 97161; C9113; G0378; J1170; J2060; J2270; J2405; J3411; J3475; J3480; J3490; J7030; J7060

== ENCOUNTER 2019-09-20 11:44 | Emergency (ER) | payer MEDICAID ==
[~2019-09-20] VITALS: Ht 160 cm; Wt 60.0 kg
[~2019-09-20 11:44] MED LIST changes: -CITA-278 PO; +CITA20TA28 PO; +GABA-532 PO; +IBUP-1984 PO; +IRBE150T51 PO; -ONDA4TAB6 PO; -TRAZ-218 PO; +TRAZ-251 PO
[2019-09-20] MEDS ORDERED: ipratropium/albuterol 3ml nebule NEB ONE (12:15)
[2019-09-20] MEDS ORDERED: methylPREDNISolone sod succ 125mg/2ml vial IV ONE (12:30)
[2019-09-20 12:33] LABS: BASOPHILS % (AUTO) 0.2 % (0-1); EOSINOPHILS % (AUTO) 0.2 % (0-6); HEMATOCRIT 39.3 % (35.0-45.0); HEMOGLOBIN 13.7 g/dl (12.0-16.0); LYMPHOCYTES # (AUTO) 0.7 X10'3 (1.1-4.8); LYMPHOCYTES % (AUTO) 11.5 % (21-51); MEAN CORPUSCULAR HEMOGLOBIN 32.7 PG (27.0-31.0); MEAN CORPUSCULAR HGB CONC 34.9 g/dL (33.0-36.5); MEAN CORPUSCULAR VOLUME 93.6 FL (78-98); MONOCYTES # (AUTO) 0.7 X10'3 (0-0.9); NEUTROPHILS # (AUTO) 4.8 X10'3 (1.8-7.7); NEUTROPHILS % (AUTO) 77.1 % (42-75); PLATELET COUNT 369 X10'3 (140-440); RED CELL DISTRIBUTION WIDTH 11.6 % (11.5-14.5); WHITE BLOOD COUNT 6.2 X10'3 (4.5-11.0)
[2019-09-20 13:33] LABS: ALANINE AMINOTRANSFERASE 27 U/L (12-78); ALBUMIN 3.3 G/DL (3.4-5.0); ALBUMIN/GLOBULIN RATIO 0.8 (1.1-1.5); ALKALINE PHOSPHATASE 70 IU/L (46-116); ASPARTATE AMINO TRANSFERASE 19 U/L (10-37); BILIRUBIN,TOTAL 0.5 MG/DL (0.1-1.0); BLOOD UREA NITROGEN 10 MG/DL (7-18); BUN/CREATININE RATIO 12.2 (6.6-38.0); CALCIUM 8.9 MG/DL (8.5-10.1); CREATININE 0.82 MG/DL (0.40-0.90); GLUCOSE 123 MG/DL (70-104); TOTAL PROTEIN 7.3 G/DL (6.4-8.2); eGFR 72 ML/MIN
[2019-09-20 13:46] LABS: ANION GAP 9 (8-16); CHLORIDE 93 MMOL/L (99-107); POTASSIUM 3.7 MMOL/L (3.5-5.1); SODIUM 129 MMOL/L (135-145); TOTAL CARBON DIOXIDE 27.2 MMOL/L (24-32)
[2019-09-20] MEDS ORDERED: dexamethasone sod phosphate 10mg/ml inj IV STA (14:34)
[2019-09-20] MEDS ORDERED: albuterol 2.5 MG/3 ML nebule NEB ONE (14:35)
[2019-09-20] MEDS ORDERED: PRED20TA PO (14:37)
[2019-09-20] MEDS ORDERED: NICO-687 TOP (14:37)
[2019-09-20 15:08] VITALS: BP 123/78
== END 2019-09-20 15:09 | disposition home or self-care (01) ==
LOC: ER 11:44
DX: J40 Bronchitis, not specified as acute or chronic (principal); I10 Essential (primary) hypertension; G89.29 Other chronic pain; F41.9 Anxiety disorder, unspecified; F10.99 Alcohol use, unspecified with unspecified alcohol-induced disorder; Z79.899 Other long term (current) drug therapy; Y90.9 Presence of alcohol in blood, level not specified
CPT/HCPCS: 36415; 71045; 80053; 83880; 84484; 85025; 87502; 87503; 93005; 94640; 96374; 96375; 99284; J1100; J2930; 94760

== ENCOUNTER 2020-08-15 23:16 | Inpatient (IN) | payer MEDICAID ==
[~2020-08-15] VITALS: Ht 160 cm; Wt 42.6 kg
[2020-08-15] MEDS ORDERED: normal saline 1000ML IV soln IVB ONE (23:25)
[2020-08-15] MEDS ORDERED: LIDOcaine 2% 10ml TOPICAL JELLY (Urojet) TP ONE (23:25)
[2020-08-15 23:39] LABS: CLARITY,URINE CLEAR (Clear); COLOR,URINE YELLOW (Yellow); GLUCOSE, URINE NEGATIVE (Neg); KETONES,URINE 15 mg/dl (Neg); LEUKOCYTE ESTERASE ,URINE NEGATIVE (Neg); NITRITES, URINE NEGATIVE (Neg); OCCULT BLOOD,URINE NEGATIVE (Neg); PH,URINE 6.5 (4.8-8.0); PROTEIN,URINE NEGATIVE (Neg)
[2020-08-15 23:40] LABS: UA COLLECTION TYPE FOLEY CATH
[2020-08-15 23:46] LABS: ALANINE AMINOTRANSFERASE 70 U/L (12-78); ALBUMIN 4.1 G/DL (3.4-5.0); ALBUMIN/GLOBULIN RATIO 1.4 (1.1-1.5); ALKALINE PHOSPHATASE 85 IU/L (46-116); ANION GAP 13 (8-16); ASPARTATE AMINO TRANSFERASE 71 U/L (10-37); BILIRUBIN,TOTAL 1.7 MG/DL (0.1-1.0); BLOOD UREA NITROGEN 2 MG/DL (7-18); BUN/CREATININE RATIO 4.7 (6.6-38.0); CALCIUM 8.3 MG/DL (8.5-10.1); CHLORIDE 73 MMOL/L (99-107); CREATININE 0.43 MG/DL (0.40-0.90); GLUCOSE 124 MG/DL (70-104); LIPASE 111 U/L (73-393); POTASSIUM 3.2 MMOL/L (3.5-5.1); TOTAL CARBON DIOXIDE 20.2 MMOL/L (24-32); TOTAL PROTEIN 7.1 G/DL (6.4-8.2); eGFR > 90 ML/MIN
[2020-08-15 23:51] LABS: SODIUM 106 MMOL/L (135-145)
[2020-08-16] VITALS (17 sets, daily range): BP systolic 112–140; BP diastolic 66–91
[2020-08-16] MEDS ORDERED: LIDOcaine 1% 30ml preserv. free vial IJ ONE (00:05)
[2020-08-16 00:28] LABS: BASOPHILS % (AUTO) 0.6 % (0-1); EOSINOPHILS % (AUTO) 0.3 % (0-6); HEMATOCRIT 37.7 % (35.0-45.0); HEMOGLOBIN 13.3 g/dl (12.0-16.0); LYMPHOCYTES # (AUTO) 0.9 X10'3 (1.1-4.8); LYMPHOCYTES % (AUTO) 16.2 % (21-51); MEAN CORPUSCULAR HEMOGLOBIN 31.5 PG (27.0-31.0); MEAN CORPUSCULAR HGB CONC 35.2 g/dL (33.0-36.5); MEAN CORPUSCULAR VOLUME 89.6 FL (78-98); MEAN PLATELET VOLUME 8.5 FL (7.4-10.4); MONOCYTES # (AUTO) 0.6 X10'3 (0-0.9); MONOCYTES % (AUTO) 11.5 % (2-12); NEUTROPHILS % (AUTO) 71.4 % (42-75); RED BLOOD COUNT 4.21 X10'6 (4.20-5.60); RED CELL DISTRIBUTION WIDTH 11.9 % (11.5-14.5); WHITE BLOOD COUNT 5.6 X10'3 (4.5-11.0)
[2020-08-16] MEDS ORDERED: potassium Cl 20 mEq SR tablet PO STA (00:30)
--- NOTE | 2020-08-16 00:30 | NUR ---
per Paulino OWENS verbal order, Normal saline bolus not given as previously ordered. No tx until intensevist evaluation per MD order
[2020-08-16 00:39] LABS: PLATELET COUNT 280 X10'3 (140-440)
[2020-08-16] MEDS ORDERED: LORazepam 2 mg/ml vial IV ONE (01:00)
[2020-08-16 01:13] LABS: SODIUM,URINE RANDOM 39 MEQ/L
[2020-08-16 01:17] LABS: OSMOLALITY UA 335 MOSM/K (50-1400)
[2020-08-16 01:17] LABS: OSMOLALITY 233 MOSM/K (280-300)
[2020-08-16] MEDS ORDERED: METO-395 PO (01:22)
[2020-08-16] MEDS ORDERED: AMLO5TAB16 PO (01:22)
[2020-08-16] MEDS ORDERED: CITA40TA17 PO (01:22)
[2020-08-16] MEDS ORDERED: ATRIN INH (01:30)
[2020-08-16] MEDS ORDERED: ALB0.5UD IH (01:30)
[2020-08-16 01:37] LABS: ETHANOL 0.048 GM/DL (0.0-0.010)
[2020-08-16] MEDS ORDERED: sodium chloride 3% IV.soln 100 ML IV ONE ×2 (01:40→04:05)
[2020-08-16] MEDS ORDERED: potassium Cl 20 mEq SR tablet PO PRN (01:45)
[2020-08-16] MEDS ORDERED: magnesium Cl slow-release 64mg tablet PO PRN (01:45)
[2020-08-16] MEDS ORDERED: acetaminophen 650mg rectal suppository RC PRN (01:45)
[2020-08-16] MEDS ORDERED: acetaminophen 325mg tablet PO PRN (01:45)
[2020-08-16] MEDS ORDERED: magnesium hydroxide 30ml (MOM) UD suspension PO PRN (01:45)
[2020-08-16] MEDS ORDERED: sodium chloride 3% IV.soln 500 ML IV ONE ×2 (01:58→03:45)
[2020-08-16] MEDS ORDERED: glucagon, human recombinant 1mg kit SUBCUT PRN (02:00)
[2020-08-16] MEDS ORDERED: dextrose 50%-water 50ml dispensing syringe IV PRN ×2 (02:00)
[2020-08-16] MEDS ORDERED: dextrose ORAL solution 15 GM/59 ML bottle PO PRN ×2 (02:00)
[2020-08-16] MEDS ORDERED: albuterol 2.5 MG/3 ML nebule NEB PRN (02:35)
[2020-08-16] MEDS: ipratropium 0.5 MG/2.5ML nebule IH SCH ×4 (02:44→21:00)
[2020-08-16 02:57] LABS: PARTIAL THROMBOPLASTIN TIME 24 SECONDS (22-32)
[2020-08-16 03:08] LABS: MAGNESIUM 1.5 MG/DL (1.5-2.4); PHOSPHORUS 2.4 MG/DL (2.3-4.5)
[2020-08-16] MEDS: nicotine 21mg patch - 24 hr TD SCH ×2 (03:10→07:36)
[2020-08-16] MEDS ORDERED: thiamine inj. 100 MG in normal saline 100ml IV soln 100 ML IV ONE (04:00)
[2020-08-16] MEDS: sodium chloride 3% IV.soln 100 ML IV SCH ×4 (04:30→06:29)
[2020-08-16] MEDS: LORazepam 2 mg/ml vial IV PRN ×4 (04:42→20:27)
[2020-08-16 05:39] LABS: OSMOLALITY UA 306 MOSM/K (50-1400); SODIUM,URINE RANDOM 74 MEQ/L
--- NOTE | 2020-08-16 06:07 | NUR ---
Per September [facility], patient will be on 1500ml fluid restriction
--- NOTE | 2020-08-16 06:08 | NUR ---
24hr urine started at 0530 08/16
--- NOTE | 2020-08-16 07:20 | NUR ---
received pt to rm 2040. Assisted into bed and placed on monitor. Pt speaking and appropriate but a little disoriented and very shakey. VSS; Sinus tach, BP elevated, and on room air. In no distress or pain. CL intact; no fluids infusing. Gave patient call light with instructions to call for assistance; Bed alarm on
[2020-08-16] MEDS: metoprolol succinate 25mg (24-HOUR) SR. Tablet PO SCH (07:28)
[2020-08-16] MEDS: amLODIPine 5mg tablet PO SCH ×2 (07:29→20:08)
[2020-08-16] MEDS: folic acid 1mg tablet PO SCH (07:31)
[2020-08-16] MEDS: pantoprazole 40mg Tablet.DR PO SCH (07:31)
[2020-08-16] MEDS: thiamine 100mg tablet PO SCH (07:32)
[2020-08-16] MEDS: gabapentin 300mg capsule PO SCH ×2 (07:32→20:08)
[2020-08-16] MEDS: multivitamins, therapeutics tablet PO SCH (07:33)
[2020-08-16] MEDS: docusate sod 100mg capsule PO SCH ×2 (07:33→20:00)
[2020-08-16] MEDS: enoxaparin 40mg/0.4ml syringe SUBCUT SCH (07:37)
[2020-08-16 09:52] LABS: ALBUMIN 3.6 G/DL (3.4-5.0); ANION GAP 5 (8-16); BLOOD UREA NITROGEN 3 MG/DL (7-18); BUN/CREATININE RATIO 7.5 (6.6-38.0); CALCIUM 8.1 MG/DL (8.5-10.1); CHLORIDE 81 MMOL/L (99-107); GLUCOSE 86 MG/DL (70-104); TOTAL CARBON DIOXIDE 25.8 MMOL/L (24-32); eGFR > 90 ML/MIN
[2020-08-16 09:55] LABS: SODIUM 112 MMOL/L (135-145)
[2020-08-16 09:56] LABS: POTASSIUM 2.8 MMOL/L (3.5-5.1)
[2020-08-16] MEDS: potassium Cl 20mEq/100mL bag 100 ML IV PRN ×5 (10:57→22:54)
[2020-08-16 12:50] LABS: OSMOLALITY UA 300 MOSM/K (50-1400)
[2020-08-16 12:53] LABS: BLOOD UREA NITROGEN 4 MG/DL (7-18); BUN/CREATININE RATIO 10.8 (6.6-38.0); CHLORIDE 78 MMOL/L (99-107); CREATININE 0.37 MG/DL (0.40-0.90); GLUCOSE 76 MG/DL (70-104); eGFR > 90 ML/MIN
[2020-08-16 12:59] LABS: ALBUMIN 3.6 G/DL (3.4-5.0); ANION GAP 9 (8-16); POTASSIUM 3.4 MMOL/L (3.5-5.1); TOTAL CARBON DIOXIDE 26.4 MMOL/L (24-32)
[2020-08-16 13:03] LABS: SODIUM 113 MMOL/L (135-145)
[2020-08-16 13:28] LABS: SODIUM,URINE RANDOM 86 MEQ/L
[2020-08-16 14:35] LABS: SODIUM,URINE RANDOM 80 MEQ/L
--- NOTE | 2020-08-16 14:40 | NUR ---
Malnutrition consult. No available scaled weight, recommend new scaled wt for patient, notified bedside RN. Per physician note pt admit with hyponatremia r/t excessive beer intake, poor solute intake, volume depletion, and SIADH. Has regular diet, did not eat breakfast, possibly r/t confusion. Also, too somnolent to interview. Receiving thiamine, folic acid r/t EtOH hx. No edema. Most recent weight 60 kg from 09/20/2019 no weigh method. Will monitor for new weight for accurate assessment of malnutrition. Addendum: 08/16/20 at [address] Amended: Links added.
[2020-08-16 14:43] LABS: ALBUMIN 3.5 G/DL (3.4-5.0); BLOOD UREA NITROGEN 3 MG/DL (7-18); CALCIUM 8.1 MG/DL (8.5-10.1); CHLORIDE 80 MMOL/L (99-107); GLUCOSE 104 MG/DL (70-104); POTASSIUM 4.1 MMOL/L (3.5-5.1); TOTAL CARBON DIOXIDE 25.7 MMOL/L (24-32); eGFR > 90 ML/MIN
[2020-08-16 14:46] LABS: ANION GAP 4 (8-16)
[2020-08-16 14:47] LABS: SODIUM 110 MMOL/L (135-145)
--- NOTE | 2020-08-16 15:03 | NUR ---
Critical lab values reported to Dr Cantu. No new orders at this time
[2020-08-16 15:12] LABS: OSMOLALITY UA 306 MOSM/K (50-1400)
[2020-08-16] MEDS: normal saline 1000ml 1,000 ML IV SCH (15:43)
[2020-08-16 17:23] LABS: OSMOLALITY UA 274 MOSM/K (50-1400)
[2020-08-16 17:24] LABS: ALBUMIN 3.5 G/DL (3.4-5.0); ANION GAP 9 (8-16); BLOOD UREA NITROGEN 3 MG/DL (7-18); BUN/CREATININE RATIO 7.7 (6.6-38.0); CALCIUM 8.2 MG/DL (8.5-10.1); CHLORIDE 78 MMOL/L (99-107); CREATININE 0.39 MG/DL (0.40-0.90); GLUCOSE 71 MG/DL (70-104); SODIUM,URINE RANDOM 70 MEQ/L; TOTAL CARBON DIOXIDE 24.8 MMOL/L (24-32); eGFR > 90 ML/MIN
[2020-08-16 17:31] LABS: SODIUM 112 MMOL/L (135-145)
--- NOTE | 2020-08-16 18:20 | NUR ---
Patient in room ICU 2040. I have received report from Rashard NI and had the opportunity to ask questions and assume patient care.
[2020-08-16 18:43] LABS: OSMOLALITY UA 332 MOSM/K (50-1400)
[2020-08-16 18:46] LABS: SODIUM,URINE RANDOM 76 MEQ/L
[2020-08-16 18:50] LABS: ALBUMIN 3.6 G/DL (3.4-5.0); ANION GAP 11 (8-16); BLOOD UREA NITROGEN 3 MG/DL (7-18); CALCIUM 8.1 MG/DL (8.5-10.1); CHLORIDE 76 MMOL/L (99-107); GLUCOSE 111 MG/DL (70-104); POTASSIUM 3.7 MMOL/L (3.5-5.1); eGFR > 90 ML/MIN
[2020-08-16 18:59] LABS: SODIUM 111 MMOL/L (135-145)
--- NOTE | 2020-08-16 19:48 | NUR ---
Received critical Sodium of 111, FADI Pineda notified and received orders to increase NS from 50ml/hr to 100ml/hr. Will continue to monitor.
[2020-08-16 20:50] LABS: ALBUMIN 3.5 G/DL (3.4-5.0); ANION GAP 8 (8-16); BLOOD UREA NITROGEN 4 MG/DL (7-18); BUN/CREATININE RATIO 8.7 (6.6-38.0); CALCIUM 8.1 MG/DL (8.5-10.1); CHLORIDE 76 MMOL/L (99-107); CREATININE 0.46 MG/DL (0.40-0.90); GLUCOSE 94 MG/DL (70-104); POTASSIUM 3.5 MMOL/L (3.5-5.1); TOTAL CARBON DIOXIDE 24.6 MMOL/L (24-32); eGFR > 90 ML/MIN
[2020-08-16 20:53] LABS: SODIUM,URINE RANDOM 53 MEQ/L
[2020-08-16 20:54] LABS: OSMOLALITY UA 343 MOSM/K (50-1400)
[2020-08-16 21:00] LABS: SODIUM 109 MMOL/L (135-145)
--- NOTE | 2020-08-16 21:15 | NUR ---
Received critical Sodium of 109, FADI Pineda notified and call placed to international first officer MD, No new orders received at this time and will follow up with next scheduled labs. Will continue to monitor
[2020-08-16 22:43] LABS: ALBUMIN 3.5 G/DL (3.4-5.0); ANION GAP 3 (8-16); BLOOD UREA NITROGEN 4 MG/DL (7-18); BUN/CREATININE RATIO 7.8 (6.6-38.0); CHLORIDE 79 MMOL/L (99-107); CREATININE 0.51 MG/DL (0.40-0.90); GLUCOSE 82 MG/DL (70-104); POTASSIUM 3.4 MMOL/L (3.5-5.1); TOTAL CARBON DIOXIDE 26.6 MMOL/L (24-32); eGFR > 90 ML/MIN
[2020-08-16 22:48] LABS: SODIUM 109 MMOL/L (135-145)
[2020-08-16 23:13] LABS: OSMOLALITY UA 273 MOSM/K (50-1400); SODIUM,URINE RANDOM 81 MEQ/L
--- NOTE | 2020-08-16 23:13 | NUR ---
Received critical Sodium of 109, FADI Pineda notified and no new orders received at this time. Will continue to monitor
[2020-08-17] VITALS (23 sets, daily range): BP systolic 91–130; BP diastolic 54–86
[2020-08-17] MEDS: potassium Cl 20mEq/100mL bag 100 ML IV PRN ×5 (00:17→14:59)
[2020-08-17 00:39] LABS: ALBUMIN 3.5 G/DL (3.4-5.0); ANION GAP 6 (8-16); BLOOD UREA NITROGEN 3 MG/DL (7-18); BUN/CREATININE RATIO 6.5 (6.6-38.0); CALCIUM 7.9 MG/DL (8.5-10.1); CHLORIDE 78 MMOL/L (99-107); CREATININE 0.46 MG/DL (0.40-0.90); GLUCOSE 83 MG/DL (70-104); POTASSIUM 3.9 MMOL/L (3.5-5.1); TOTAL CARBON DIOXIDE 26.3 MMOL/L (24-32); eGFR > 90 ML/MIN
[2020-08-17 00:40] LABS: OSMOLALITY UA 288 MOSM/K (50-1400)
[2020-08-17 00:42] LABS: SODIUM 110 MMOL/L (135-145)
[2020-08-17 00:43] LABS: SODIUM,URINE RANDOM 83 MEQ/L
[2020-08-17] MEDS: LORazepam 1 MG tablet PO PRN ×5 (01:53→21:09)
[2020-08-17] MEDS: acetaminophen 325mg tablet PO PRN ×4 (01:53→19:07)
[2020-08-17] MEDS: ipratropium 0.5 MG/2.5ML nebule IH SCH ×4 (02:19→20:58)
[2020-08-17 02:36] LABS: OSMOLALITY UA 285 MOSM/K (50-1400)
[2020-08-17 02:44] LABS: SODIUM,URINE RANDOM 81 MEQ/L
[2020-08-17 02:47] LABS: LYMPHOCYTES # (AUTO) 0.6 X10'3 (1.1-4.8)
[2020-08-17 02:49] LABS: BASOPHILS % (AUTO) 0.5 % (0-1); EOSINOPHILS % (AUTO) 0.5 % (0-6); LYMPHOCYTES % (AUTO) 10.4 % (21-51); MEAN PLATELET VOLUME 7.8 FL (7.4-10.4); MONOCYTES # (AUTO) 0.7 X10'3 (0-0.9); NEUTROPHILS # (AUTO) 4.4 X10'3 (1.8-7.7); NEUTROPHILS % (AUTO) 76.6 % (42-75); PLATELET COUNT 173 X10'3 (140-440); RED BLOOD COUNT 3.64 X10'6 (4.20-5.60); RED CELL DISTRIBUTION WIDTH 11.9 % (11.5-14.5); WHITE BLOOD COUNT 5.7 X10'3 (4.5-11.0)
[2020-08-17 02:51] LABS: ALANINE AMINOTRANSFERASE 54 U/L (12-78); ALBUMIN 3.4 G/DL (3.4-5.0); ALBUMIN/GLOBULIN RATIO 1.3 (1.1-1.5); ALKALINE PHOSPHATASE 70 IU/L (46-116); AMYLASE 36 U/L (25-115); ANION GAP 4 (8-16); ASPARTATE AMINO TRANSFERASE 50 U/L (10-37); BILIRUBIN,TOTAL 2.8 MG/DL (0.1-1.0); BLOOD UREA NITROGEN 3 MG/DL (7-18); BUN/CREATININE RATIO 6.4 (6.6-38.0); CALCIUM 7.9 MG/DL (8.5-10.1); CHLORIDE 80 MMOL/L (99-107); CREATININE 0.47 MG/DL (0.40-0.90); GLUCOSE 86 MG/DL (70-104); LIPASE 172 U/L (73-393); MAGNESIUM 1.3 MG/DL (1.5-2.4); PHOSPHORUS 1.7 MG/DL (2.3-4.5); POTASSIUM 3.8 MMOL/L (3.5-5.1); TOTAL CARBON DIOXIDE 25.8 MMOL/L (24-32); TOTAL PROTEIN 6.1 G/DL (6.4-8.2); eGFR > 90 ML/MIN
[2020-08-17 02:53] LABS: SODIUM 110 MMOL/L (135-145)
[2020-08-17 03:18] LABS: HEMATOCRIT 33.2 % (35.0-45.0); HEMOGLOBIN 11.5 g/dl (12.0-16.0); MEAN CORPUSCULAR HEMOGLOBIN 31.7 PG (27.0-31.0); MEAN CORPUSCULAR HGB CONC 34.7 g/dL (33.0-36.5); MEAN CORPUSCULAR VOLUME 91.3 FL (78-98)
[2020-08-17 03:29] LABS: TOTAL CELLS COUNTED 100
[2020-08-17 03:30] LABS: LARGE PLATELETS FEW; PLATELET ESTIMATE NORMAL
[2020-08-17 03:31] LABS: TOXIC VACUOLATION 1+
[2020-08-17] MEDS: normal saline 1000ml 1,000 ML IV SCH ×2 (03:39→13:08)
[2020-08-17 04:17] LABS: OSMOLALITY UA 329 MOSM/K (50-1400)
[2020-08-17 04:24] LABS: ALBUMIN 3.3 G/DL (3.4-5.0); ANION GAP 4 (8-16); BLOOD UREA NITROGEN 3 MG/DL (7-18); BUN/CREATININE RATIO 6.5 (6.6-38.0); CALCIUM 7.9 MG/DL (8.5-10.1); CHLORIDE 80 MMOL/L (99-107); CREATININE 0.46 MG/DL (0.40-0.90); GLUCOSE 96 MG/DL (70-104); POTASSIUM 3.3 MMOL/L (3.5-5.1); TOTAL CARBON DIOXIDE 25.4 MMOL/L (24-32); eGFR > 90 ML/MIN
[2020-08-17 04:37] LABS: SODIUM,URINE RANDOM 84 MEQ/L
--- NOTE | 2020-08-17 04:40 | NUR ---
Received critical Sodium, FADI Pineda notified, No new orders received at this time. Will continue to monitor.
[2020-08-17 04:41] LABS: SODIUM 109 MMOL/L (135-145)
--- NOTE | 2020-08-17 06:20 | NUR ---
Problems reprioritized. Patient report given, questions answered & plan of care reviewed with Rashard NI.
[2020-08-17] MEDS: docusate sod 100mg capsule PO SCH ×2 (06:38→19:06)
[2020-08-17 06:41] LABS: ALBUMIN 3.5 G/DL (3.4-5.0); ANION GAP 4 (8-16); BLOOD UREA NITROGEN 2 MG/DL (7-18); BUN/CREATININE RATIO 4.5 (6.6-38.0); CALCIUM 8.1 MG/DL (8.5-10.1); CHLORIDE 80 MMOL/L (99-107); CREATININE 0.44 MG/DL (0.40-0.90); GLUCOSE 92 MG/DL (70-104); POTASSIUM 3.7 MMOL/L (3.5-5.1); TOTAL CARBON DIOXIDE 25.6 MMOL/L (24-32); eGFR > 90 ML/MIN
[2020-08-17 06:51] LABS: SODIUM 110 MMOL/L (135-145)
[2020-08-17 06:54] LABS: SODIUM,URINE RANDOM 76 MEQ/L
[2020-08-17 06:59] LABS: OSMOLALITY UA 343 MOSM/K (50-1400)
[2020-08-17] MEDS: amLODIPine 5mg tablet PO SCH ×2 (07:09→19:08)
[2020-08-17] MEDS: pantoprazole 40mg Tablet.DR PO SCH (07:09)
[2020-08-17] MEDS: gabapentin 300mg capsule PO SCH ×2 (07:09→19:07)
[2020-08-17] MEDS: metoprolol succinate 25mg (24-HOUR) SR. Tablet PO SCH (07:09)
[2020-08-17] MEDS: folic acid 1mg tablet PO SCH (07:09)
[2020-08-17] MEDS: thiamine 100mg tablet PO SCH (07:09)
[2020-08-17] MEDS: multivitamins, therapeutics tablet PO SCH (07:09)
[2020-08-17] MEDS: enoxaparin 40mg/0.4ml syringe SUBCUT SCH (07:10)
[2020-08-17] MEDS: nicotine 21mg patch - 24 hr TD SCH (07:21)
[2020-08-17 08:28] LABS: SODIUM,URINE RANDOM 68 MEQ/L
[2020-08-17 08:35] LABS: ALBUMIN 3.1 G/DL (3.4-5.0); ANION GAP 2 (8-16); BLOOD UREA NITROGEN 2 MG/DL (7-18); CALCIUM 7.6 MG/DL (8.5-10.1); CHLORIDE 82 MMOL/L (99-107); GLUCOSE 109 MG/DL (70-104); TOTAL CARBON DIOXIDE 25.8 MMOL/L (24-32); eGFR > 90 ML/MIN
[2020-08-17 08:39] LABS: SODIUM 110 MMOL/L (135-145)
[2020-08-17 08:59] LABS: OSMOLALITY UA 342 MOSM/K (50-1400)
[2020-08-17 09:59] LABS: SODIUM,URINE RANDOM 72 MEQ/L
[2020-08-17] MEDS ORDERED: pneumococcal 23-VAL P-sac vacc 25 mcg/0.5ml vial IMVAC ONE (10:00)
[2020-08-17 10:07] LABS: ANION GAP 6 (8-16); BLOOD UREA NITROGEN 2 MG/DL (7-18); BUN/CREATININE RATIO 5.4 (6.6-38.0); CALCIUM 7.8 MG/DL (8.5-10.1); CHLORIDE 81 MMOL/L (99-107); CREATININE 0.37 MG/DL (0.40-0.90); GLUCOSE 88 MG/DL (70-104); POTASSIUM 3.6 MMOL/L (3.5-5.1); eGFR > 90 ML/MIN
[2020-08-17 10:14] LABS: SODIUM 112 MMOL/L (135-145)
[2020-08-17 10:15] LABS: OSMOLALITY UA 327 MOSM/K (50-1400)
--- NOTE | 2020-08-17 10:39 | NUR ---
Dr Cantu aware that mag and phos are low and that there are no replacement orders. No new orders at this time
[2020-08-17 12:36] LABS: SODIUM,URINE RANDOM 91 MEQ/L
[2020-08-17 12:42] LABS: ALBUMIN 3.2 G/DL (3.4-5.0); ANION GAP 5 (8-16); BLOOD UREA NITROGEN 2 MG/DL (7-18); BUN/CREATININE RATIO 4.7 (6.6-38.0); CALCIUM 7.9 MG/DL (8.5-10.1); CHLORIDE 81 MMOL/L (99-107); CREATININE 0.43 MG/DL (0.40-0.90); GLUCOSE 99 MG/DL (70-104); POTASSIUM 3.3 MMOL/L (3.5-5.1); TOTAL CARBON DIOXIDE 25.2 MMOL/L (24-32); eGFR > 90 ML/MIN
[2020-08-17 12:43] LABS: OSMOLALITY UA 322 MOSM/K (50-1400)
[2020-08-17 12:44] LABS: SODIUM 111 MMOL/L (135-145)
[2020-08-17] MEDS: TOLVAPTAN 30 MG TABLET PO SCH (14:03)
[2020-08-17 14:16] LABS: SODIUM,URINE RANDOM 67 MEQ/L
[2020-08-17 14:22] LABS: OSMOLALITY UA 364 MOSM/K (50-1400)
[2020-08-17 14:24] LABS: ANION GAP 5 (8-16); BLOOD UREA NITROGEN 3 MG/DL (7-18); BUN/CREATININE RATIO 5.6 (6.6-38.0); CALCIUM 7.7 MG/DL (8.5-10.1); CHLORIDE 82 MMOL/L (99-107); CREATININE 0.54 MG/DL (0.40-0.90); GLUCOSE 113 MG/DL (70-104); POTASSIUM 4.7 MMOL/L (3.5-5.1); TOTAL CARBON DIOXIDE 24.1 MMOL/L (24-32); eGFR > 90 ML/MIN
[2020-08-17 14:27] LABS: SODIUM 111 MMOL/L (135-145)
--- NOTE | 2020-08-17 15:28 | NUR ---
F/u for malnutrition consult: New scaled weight obtained is 52.4 kg. This is non-significant wt loss of 12% in 11 months. Pt with 0-25% PO intake up to 50% PO intake at lunch today on regular diet not meeting estimated nutrient needs. Diet order has been changed to mechanical soft grind all d/t pt with poor dentition per diet order. Likely that PO intake will improve with new texture modification and pt becoming more alert. Pt with no documented decrease in muscle strength or edema. Attempted visit with pt at bedside, pt sleeping and mostly covered by blankets though no visible fat or muscle wasting was noted. Pt currently lacks a minimum of two criteria for malnutrition. Will continue to follow closely and monitor need for nutrition intervention pending further trends in PO intake. Addendum: 08/17/20 at [address] Amended: Links added.
[2020-08-17 16:35] LABS: ALBUMIN 3.2 G/DL (3.4-5.0); ANION GAP 6 (8-16); BLOOD UREA NITROGEN 3 MG/DL (7-18); CALCIUM 8.1 MG/DL (8.5-10.1); CHLORIDE 87 MMOL/L (99-107); GLUCOSE 86 MG/DL (70-104); POTASSIUM 4.5 MMOL/L (3.5-5.1); TOTAL CARBON DIOXIDE 24.5 MMOL/L (24-32); eGFR > 90 ML/MIN
[2020-08-17 16:38] LABS: SODIUM 117 MMOL/L (135-145)
[2020-08-17 17:03] LABS: OSMOLALITY UA < 100 MOSM/K (50-1400); SODIUM,URINE RANDOM < 15 MEQ/L
--- NOTE | 2020-08-17 17:10 | NUR ---
sodium of [address] Cantu. He does not want the sodium to increase more then 6 every 12 hours, which it has in the last 2 hours. Orders to reduce NS to 50, continue to monitor q2h, and we may have to add free water or something else if the NA continues to rise to fast
[2020-08-17 18:17] LABS: ALBUMIN 3.2 G/DL (3.4-5.0); ANION GAP 5 (8-16); BLOOD UREA NITROGEN 3 MG/DL (7-18); BUN/CREATININE RATIO 5.5 (6.6-38.0); CALCIUM 8.3 MG/DL (8.5-10.1); CHLORIDE 89 MMOL/L (99-107); CREATININE 0.55 MG/DL (0.40-0.90); GLUCOSE 86 MG/DL (70-104); SODIUM,URINE RANDOM < 15 MEQ/L; TOTAL CARBON DIOXIDE 24.3 MMOL/L (24-32); eGFR > 90 ML/MIN
[2020-08-17 18:19] LABS: SODIUM 118 MMOL/L (135-145)
[2020-08-17 18:25] LABS: OSMOLALITY UA < 100 MOSM/K (50-1400)
[2020-08-17 20:38] LABS: ALBUMIN 3.2 G/DL (3.4-5.0); ANION GAP 5 (8-16); BLOOD UREA NITROGEN 4 MG/DL (7-18); BUN/CREATININE RATIO 7.8 (6.6-38.0); CALCIUM 8.5 MG/DL (8.5-10.1); CHLORIDE 89 MMOL/L (99-107); CREATININE 0.51 MG/DL (0.40-0.90); GLUCOSE 97 MG/DL (70-104); POTASSIUM 3.8 MMOL/L (3.5-5.1); eGFR > 90 ML/MIN
[2020-08-17 20:44] LABS: SODIUM 119 MMOL/L (135-145)
[2020-08-17 20:45] LABS: SODIUM,URINE RANDOM < 15 MEQ/L
[2020-08-17 21:16] LABS: OSMOLALITY UA < 100 MOSM/K (50-1400)
[2020-08-17] MEDS: sodium chloride 0.45% 1,000 ML IV SCH (22:00)
[2020-08-17] MEDS: LORazepam 2 mg/ml vial IV PRN (22:31)
[2020-08-17 23:29] LABS: ALBUMIN 3.3 G/DL (3.4-5.0); ANION GAP 6 (8-16); BLOOD UREA NITROGEN 4 MG/DL (7-18); BUN/CREATININE RATIO 6.9 (6.6-38.0); CALCIUM 8.7 MG/DL (8.5-10.1); CHLORIDE 90 MMOL/L (99-107); CREATININE 0.58 MG/DL (0.40-0.90); GLUCOSE 109 MG/DL (70-104); POTASSIUM 3.7 MMOL/L (3.5-5.1); TOTAL CARBON DIOXIDE 24.5 MMOL/L (24-32); eGFR > 90 ML/MIN
[2020-08-17 23:33] LABS: SODIUM,URINE RANDOM < 15 MEQ/L
[2020-08-17 23:38] LABS: SODIUM 120 MMOL/L (135-145)
[2020-08-17 23:47] LABS: OSMOLALITY UA < 100 MOSM/K (50-1400)
[2020-08-18] VITALS (22 sets, daily range): BP systolic 91–140; BP diastolic 48–81
[2020-08-18] MEDS: LORazepam 2 mg/ml vial IV PRN ×2 (00:45→04:00)
[2020-08-18 01:35] LABS: ALBUMIN 3.3 G/DL (3.4-5.0); ANION GAP 8 (8-16); BLOOD UREA NITROGEN 4 MG/DL (7-18); BUN/CREATININE RATIO 7.4 (6.6-38.0); CALCIUM 8.8 MG/DL (8.5-10.1); CHLORIDE 90 MMOL/L (99-107); CREATININE 0.54 MG/DL (0.40-0.90); GLUCOSE 99 MG/DL (70-104); POTASSIUM 3.8 MMOL/L (3.5-5.1); SODIUM 122 MMOL/L (135-145); TOTAL CARBON DIOXIDE 23.9 MMOL/L (24-32); eGFR > 90 ML/MIN
[2020-08-18 01:42] LABS: SODIUM,URINE RANDOM < 15 MEQ/L
[2020-08-18 01:43] LABS: OSMOLALITY UA < 100 MOSM/K (50-1400)
[2020-08-18] MEDS: ipratropium 0.5 MG/2.5ML nebule IH SCH ×4 (02:00→21:53)
[2020-08-18 03:49] LABS: BASOPHILS % (AUTO) 0.5 % (0-1); EOSINOPHILS % (AUTO) 0.8 % (0-6); HEMATOCRIT 30.8 % (35.0-45.0); LYMPHOCYTES # (AUTO) 0.4 X10'3 (1.1-4.8); LYMPHOCYTES % (AUTO) 8.4 % (21-51); MEAN CORPUSCULAR HEMOGLOBIN 32.4 PG (27.0-31.0); MEAN CORPUSCULAR HGB CONC 35.8 g/dL (33.0-36.5); MEAN CORPUSCULAR VOLUME 90.4 FL (78-98); MEAN PLATELET VOLUME 7.9 FL (7.4-10.4); MONOCYTES # (AUTO) 0.5 X10'3 (0-0.9); MONOCYTES % (AUTO) 10.9 % (2-12); NEUTROPHILS # (AUTO) 3.5 X10'3 (1.8-7.7); NEUTROPHILS % (AUTO) 79.4 % (42-75); PLATELET COUNT 149 X10'3 (140-440); RED BLOOD COUNT 3.41 X10'6 (4.20-5.60); RED CELL DISTRIBUTION WIDTH 12.1 % (11.5-14.5); WHITE BLOOD COUNT 4.4 X10'3 (4.5-11.0)
[2020-08-18 03:54] LABS: OSMOLALITY UA < 100 MOSM/K (50-1400)
[2020-08-18 04:02] LABS: ALANINE AMINOTRANSFERASE 44 U/L (12-78); ALBUMIN 3.1 G/DL (3.4-5.0); ALBUMIN/GLOBULIN RATIO 1.2 (1.1-1.5); ALKALINE PHOSPHATASE 66 IU/L (46-116); AMYLASE 30 U/L (25-115); ANION GAP 6 (8-16); ASPARTATE AMINO TRANSFERASE 31 U/L (10-37); BILIRUBIN,TOTAL 1.5 MG/DL (0.1-1.0); BLOOD UREA NITROGEN 4 MG/DL (7-18); BUN/CREATININE RATIO 8.2 (6.6-38.0); CALCIUM 8.5 MG/DL (8.5-10.1); CHLORIDE 94 MMOL/L (99-107); CREATININE 0.49 MG/DL (0.40-0.90); GLUCOSE 95 MG/DL (70-104); LIPASE 131 U/L (73-393); MAGNESIUM 1.6 MG/DL (1.5-2.4); PHOSPHORUS 2.3 MG/DL (2.3-4.5); POTASSIUM 3.5 MMOL/L (3.5-5.1); SODIUM 125 MMOL/L (135-145); TOTAL CARBON DIOXIDE 25.1 MMOL/L (24-32); TOTAL PROTEIN 5.6 G/DL (6.4-8.2); eGFR > 90 ML/MIN
[2020-08-18 04:07] LABS: SODIUM,URINE RANDOM < 15 MEQ/L
[2020-08-18 05:50] LABS: OSMOLALITY UA < 100 MOSM/K (50-1400)
[2020-08-18 05:51] LABS: ALBUMIN 3.3 G/DL (3.4-5.0); ANION GAP 7 (8-16); BLOOD UREA NITROGEN 4 MG/DL (7-18); BUN/CREATININE RATIO 7.1 (6.6-38.0); CALCIUM 8.5 MG/DL (8.5-10.1); CHLORIDE 94 MMOL/L (99-107); CREATININE 0.56 MG/DL (0.40-0.90); GLUCOSE 105 MG/DL (70-104); POTASSIUM 3.6 MMOL/L (3.5-5.1); SODIUM 124 MMOL/L (135-145); TOTAL CARBON DIOXIDE 23.4 MMOL/L (24-32); eGFR > 90 ML/MIN
[2020-08-18 05:54] LABS: SODIUM,URINE RANDOM < 15 MEQ/L
--- NOTE | 2020-08-18 06:29 | NUR ---
Patient in room ICU 2040. I have received report from Rashard NI and had the opportunity to ask questions and assume patient care.
[2020-08-18 08:05] LABS: ALBUMIN 3.2 G/DL (3.4-5.0); ANION GAP 6 (8-16); BLOOD UREA NITROGEN 3 MG/DL (7-18); BUN/CREATININE RATIO 6.4 (6.6-38.0); CALCIUM 8.5 MG/DL (8.5-10.1); CHLORIDE 96 MMOL/L (99-107); CREATININE 0.47 MG/DL (0.40-0.90); GLUCOSE 99 MG/DL (70-104); POTASSIUM 3.6 MMOL/L (3.5-5.1); SODIUM 128 MMOL/L (135-145); TOTAL CARBON DIOXIDE 25.8 MMOL/L (24-32); eGFR > 90 ML/MIN
[2020-08-18] MEDS: pantoprazole 40mg Tablet.DR PO SCH (08:08)
[2020-08-18] MEDS: TOLVAPTAN 30 MG TABLET PO SCH (08:08)
[2020-08-18] MEDS: thiamine 100mg tablet PO SCH (08:08)
[2020-08-18] MEDS: amLODIPine 5mg tablet PO SCH ×2 (08:09→20:31)
[2020-08-18] MEDS: docusate sod 100mg capsule PO SCH ×2 (08:09→20:31)
[2020-08-18] MEDS: LORazepam 1 MG tablet PO PRN ×4 (08:09→23:01)
[2020-08-18] MEDS: metoprolol succinate 25mg (24-HOUR) SR. Tablet PO SCH (08:09)
[2020-08-18] MEDS: gabapentin 300mg capsule PO SCH ×2 (08:09→20:31)
[2020-08-18] MEDS: folic acid 1mg tablet PO SCH (08:10)
[2020-08-18] MEDS: acetaminophen 325mg tablet PO PRN ×3 (08:10→20:42)
[2020-08-18] MEDS: multivitamins, therapeutics tablet PO SCH (08:10)
[2020-08-18] MEDS: enoxaparin 40mg/0.4ml syringe SUBCUT SCH (08:11)
[2020-08-18] MEDS: nicotine 21mg patch - 24 hr TD SCH (08:13)
[2020-08-18 08:15] LABS: SODIUM,URINE RANDOM < 15 MEQ/L
[2020-08-18 08:18] LABS: OSMOLALITY UA < 100 MOSM/K (50-1400)
[2020-08-18 10:16] LABS: CLARITY,URINE CLEAR (Clear); COLOR,URINE YELLOW (Yellow); GLUCOSE, URINE NEGATIVE (Neg); KETONES,URINE NEGATIVE (Neg); LEUKOCYTE ESTERASE ,URINE SMALL (Neg); NITRITES, URINE NEGATIVE (Neg); OCCULT BLOOD,URINE LARGE (Neg); PROTEIN,URINE NEGATIVE (Neg)
[2020-08-18 10:19] LABS: ANION GAP 9 (8-16); BLOOD UREA NITROGEN 3 MG/DL (7-18); BUN/CREATININE RATIO 5.4 (6.6-38.0); CALCIUM 8.1 MG/DL (8.5-10.1); CHLORIDE 98 MMOL/L (99-107); CREATININE 0.56 MG/DL (0.40-0.90); GLUCOSE 97 MG/DL (70-104); POTASSIUM 3.2 MMOL/L (3.5-5.1); SODIUM 129 MMOL/L (135-145); TOTAL CARBON DIOXIDE 21.9 MMOL/L (24-32); eGFR > 90 ML/MIN
[2020-08-18 10:21] LABS: SODIUM,URINE RANDOM < 15 MEQ/L; UA COLLECTION TYPE FOLEY CATH
[2020-08-18 10:22] LABS: BACTERIA,URINE NONE SEEN /HPF (Neg); MUCUS STRANDS FEW /LPF (Neg); RBC,URINE 0-2 /HPF (0-2); SQUAMOUS EPITHELIAL CELL,UR NONE SEEN /LPF (FEW); WBC,URINE 0-4 /HPF (0-4)
[2020-08-18 10:33] LABS: OSMOLALITY UA < 100 MOSM/K (50-1400)
[2020-08-18] MEDS: potassium Cl 20mEq/100mL bag 100 ML IV PRN (10:39)
[2020-08-18 11:56] LABS: ALBUMIN 3.1 G/DL (3.4-5.0); ANION GAP 5 (8-16); BLOOD UREA NITROGEN 5 MG/DL (7-18); BUN/CREATININE RATIO 10.2 (6.6-38.0); CALCIUM 8.6 MG/DL (8.5-10.1); CHLORIDE 99 MMOL/L (99-107); CREATININE 0.49 MG/DL (0.40-0.90); GLUCOSE 95 MG/DL (70-104); POTASSIUM 3.8 MMOL/L (3.5-5.1); SODIUM 130 MMOL/L (135-145); TOTAL CARBON DIOXIDE 25.7 MMOL/L (24-32); eGFR > 90 ML/MIN
[2020-08-18 12:02] LABS: SODIUM,URINE RANDOM < 15 MEQ/L
[2020-08-18 12:03] LABS: OSMOLALITY UA < 100 MOSM/K (50-1400)
[2020-08-18 14:44] LABS: ALBUMIN 3.1 G/DL (3.4-5.0); ANION GAP 5 (8-16); BLOOD UREA NITROGEN 5 MG/DL (7-18); BUN/CREATININE RATIO 11.1 (6.6-38.0); CALCIUM 8.8 MG/DL (8.5-10.1); CHLORIDE 100 MMOL/L (99-107); CREATININE 0.45 MG/DL (0.40-0.90); GLUCOSE 89 MG/DL (70-104); POTASSIUM 4.2 MMOL/L (3.5-5.1); SODIUM 130 MMOL/L (135-145); TOTAL CARBON DIOXIDE 25.2 MMOL/L (24-32); eGFR > 90 ML/MIN
[2020-08-18 14:48] LABS: SODIUM,URINE RANDOM 17 MEQ/L
[2020-08-18 14:49] LABS: OSMOLALITY UA 156 MOSM/K (50-1400)
[2020-08-18] MEDS: sodium chloride 0.45% 1,000 ML IV SCH (15:32)
--- NOTE | 2020-08-18 18:20 | NUR ---
Problems reprioritized. Patient report given, questions answered & plan of care reviewed with Mac RN.
--- NOTE | 2020-08-18 22:31 | NUR ---
PAGER ID: [phone] MESSAGE: [id number] [address]: DKA, 136 blood sugar now, 160 last hour with D5 .45 NS at 200 ml/hr and Insulin at 5. Can we lower insulin to 4 and increase fluids to 250? Clare NI [phone] Addendum: 08/19/20 at 0508 by Clare Castillo RN wrong patient.
--- NOTE | 2020-08-18 23:00 | NUR ---
Patient in room PCU 3015. I have received report from Mac RN and had the opportunity to ask questions and assume patient care.
[2020-08-19 02:00] VITALS: BP 104/78
[2020-08-19] MEDS: ipratropium 0.5 MG/2.5ML nebule IH SCH ×4 (02:00→20:45)
[2020-08-19 04:29] LABS: BASOPHILS % (AUTO) 1.3 % (0-1); EOSINOPHILS # (AUTO) 0.1 X10'3 (0-0.9); EOSINOPHILS % (AUTO) 2.9 % (0-6); HEMATOCRIT 29.8 % (35.0-45.0); HEMOGLOBIN 10.4 g/dl (12.0-16.0); LYMPHOCYTES # (AUTO) 0.6 X10'3 (1.1-4.8); LYMPHOCYTES % (AUTO) 19.7 % (21-51); MEAN CORPUSCULAR HEMOGLOBIN 32.2 PG (27.0-31.0); MEAN CORPUSCULAR HGB CONC 34.9 g/dL (33.0-36.5); MEAN CORPUSCULAR VOLUME 92.3 FL (78-98); MEAN PLATELET VOLUME 7.3 FL (7.4-10.4); MONOCYTES # (AUTO) 0.5 X10'3 (0-0.9); NEUTROPHILS # (AUTO) 1.8 X10'3 (1.8-7.7); NEUTROPHILS % (AUTO) 60.1 % (42-75); PLATELET COUNT 164 X10'3 (140-440); RED BLOOD COUNT 3.23 X10'6 (4.20-5.60); RED CELL DISTRIBUTION WIDTH 12.1 % (11.5-14.5); WHITE BLOOD COUNT 2.9 X10'3 (4.5-11.0)
[2020-08-19 04:44] LABS: ALANINE AMINOTRANSFERASE 37 U/L (12-78); ALBUMIN/GLOBULIN RATIO 1.2 (1.1-1.5); ALKALINE PHOSPHATASE 69 IU/L (46-116); AMYLASE 32 U/L (25-115); ANION GAP 5 (8-16); ASPARTATE AMINO TRANSFERASE 24 U/L (10-37); BILIRUBIN,TOTAL 0.8 MG/DL (0.1-1.0); BLOOD UREA NITROGEN 4 MG/DL (7-18); BUN/CREATININE RATIO 7.1 (6.6-38.0); CALCIUM 8.5 MG/DL (8.5-10.1); CHLORIDE 100 MMOL/L (99-107); CREATININE 0.56 MG/DL (0.40-0.90); GLUCOSE 92 MG/DL (70-104); LIPASE 119 U/L (73-393); MAGNESIUM 1.6 MG/DL (1.5-2.4); POTASSIUM 3.6 MMOL/L (3.5-5.1); SODIUM 130 MMOL/L (135-145); TOTAL CARBON DIOXIDE 24.6 MMOL/L (24-32); TOTAL PROTEIN 5.5 G/DL (6.4-8.2); eGFR > 90 ML/MIN
--- NOTE | 2020-08-19 05:12 | NUR ---
Student documentation: I have reviewed and agree with all interventions, assessments performed and medications administered documented by Messi burciaga RN .
[2020-08-19 06:00] VITALS: BP 110/69
--- NOTE | 2020-08-19 06:30 | NUR ---
Patient in room PCU 3015. I have received report from LAST Sparks and had the opportunity to ask questions and assume patient care.
--- NOTE | 2020-08-19 06:33 | NUR ---
Problems reprioritized. Patient report given, questions answered & plan of care reviewed with Nika NI.
[2020-08-19] MEDS: folic acid 1mg tablet PO SCH (08:00)
[2020-08-19] MEDS: docusate sod 100mg capsule PO SCH ×2 (08:21→20:06)
[2020-08-19] MEDS: amLODIPine 5mg tablet PO SCH ×2 (08:22→20:06)
[2020-08-19] MEDS: metoprolol succinate 25mg (24-HOUR) SR. Tablet PO SCH (08:23)
[2020-08-19] MEDS: thiamine 100mg tablet PO SCH (08:23)
[2020-08-19] MEDS: gabapentin 300mg capsule PO SCH ×2 (08:23→20:06)
[2020-08-19] MEDS: enoxaparin 40mg/0.4ml syringe SUBCUT SCH (08:23)
[2020-08-19] MEDS: pantoprazole 40mg Tablet.DR PO SCH (08:23)
[2020-08-19] MEDS: multivitamins, therapeutics tablet PO SCH (08:23)
[2020-08-19] MEDS: nicotine 21mg patch - 24 hr TD SCH (08:24)
[2020-08-19 08:42] LABS: PLATELET ESTIMATE NORMAL; TOTAL CELLS COUNTED 100
[2020-08-19 08:43] LABS: BURR CELLS FEW
--- NOTE | 2020-08-19 09:10 | NUR ---
notified. PAGER ID: [phone] MESSAGE: Re; Ness Serrano. [id number]. Pt. on ETOH protocol. Order fell off for Ativan prn. Patient currently anxious and tremulous. Can we renew the order for prn ativan? thanks. Nika [phone].
[2020-08-19] MEDS: TOLVAPTAN 30 MG TABLET PO SCH (09:49)
[2020-08-19 11:00] VITALS: BP 103/75
[2020-08-19] MEDS ORDERED: LORazepam 1 MG tablet PO ONE (12:05)
[2020-08-19 15:00] VITALS: BP 105/59
[2020-08-19] MEDS: sodium chloride 0.45% 1,000 ML IV SCH (17:00)
[2020-08-19 18:00] VITALS: BP 106/74
--- NOTE | 2020-08-19 18:00 | NUR ---
Patient in room PCU 3015. I have received report from Nika NI and had the opportunity to ask questions and assume patient care.
--- NOTE | 2020-08-19 18:15 | NUR ---
Patient in room PCU 3015. I have received report from Nika NI and had the opportunity to ask questions and assume patient care. Patient was sleeping comfortably at time of shift change.
--- NOTE | 2020-08-19 18:30 | NUR ---
Problems reprioritized. Patient report given, questions answered & plan of care reviewed with LAST Sparks.
[2020-08-19] MEDS: acetaminophen 325mg tablet PO PRN (20:10)
[2020-08-19 22:00] VITALS: BP 115/62
--- NOTE | 2020-08-19 22:11 | NUR ---
NS Question Called FADI Pineda about 1/2NS order, asked whether he would like to change fluids from 1/2NS to NS per all MD notes. Miriam advised to pass on to dayshift for more clarification.
[2020-08-20] MEDS: ipratropium 0.5 MG/2.5ML nebule IH SCH ×3 (02:36→16:11)
[2020-08-20 03:37] LABS: BASOPHILS % (AUTO) 1.2 % (0-1); EOSINOPHILS # (AUTO) 0.1 X10'3 (0-0.9); EOSINOPHILS % (AUTO) 5.5 % (0-6); HEMATOCRIT 29.3 % (35.0-45.0); HEMOGLOBIN 10.2 g/dl (12.0-16.0); LYMPHOCYTES # (AUTO) 0.6 X10'3 (1.1-4.8); LYMPHOCYTES % (AUTO) 25.6 % (21-51); MEAN CORPUSCULAR HEMOGLOBIN 31.8 PG (27.0-31.0); MEAN CORPUSCULAR HGB CONC 34.7 g/dL (33.0-36.5); MEAN CORPUSCULAR VOLUME 91.7 FL (78-98); MEAN PLATELET VOLUME 7.4 FL (7.4-10.4); MONOCYTES # (AUTO) 0.5 X10'3 (0-0.9); MONOCYTES % (AUTO) 20.3 % (2-12); NEUTROPHILS # (AUTO) 1.2 X10'3 (1.8-7.7); NEUTROPHILS % (AUTO) 47.4 % (42-75); PLATELET COUNT 190 X10'3 (140-440); RED BLOOD COUNT 3.19 X10'6 (4.20-5.60); WHITE BLOOD COUNT 2.4 X10'3 (4.5-11.0)
[2020-08-20 03:44] LABS: ALANINE AMINOTRANSFERASE 45 U/L (12-78); ALBUMIN/GLOBULIN RATIO 1.3 (1.1-1.5); ALKALINE PHOSPHATASE 70 IU/L (46-116); AMYLASE 36 U/L (25-115); ANION GAP 8 (8-16); ASPARTATE AMINO TRANSFERASE 40 U/L (10-37); BILIRUBIN,TOTAL 0.7 MG/DL (0.1-1.0); BLOOD UREA NITROGEN 3 MG/DL (7-18); BUN/CREATININE RATIO 5.7 (6.6-38.0); CALCIUM 8.6 MG/DL (8.5-10.1); CHLORIDE 101 MMOL/L (99-107); CREATININE 0.53 MG/DL (0.40-0.90); GLUCOSE 92 MG/DL (70-104); LIPASE 122 U/L (73-393); MAGNESIUM 1.4 MG/DL (1.5-2.4); PHOSPHORUS 3.7 MG/DL (2.3-4.5); POTASSIUM 3.3 MMOL/L (3.5-5.1); SODIUM 134 MMOL/L (135-145); TOTAL CARBON DIOXIDE 25.1 MMOL/L (24-32); TOTAL PROTEIN 5.4 G/DL (6.4-8.2); eGFR > 90 ML/MIN
[2020-08-20 04:36] LABS: TOTAL CELLS COUNTED 100
[2020-08-20 04:37] LABS: PLATELET ESTIMATE NORMAL
--- NOTE | 2020-08-20 06:15 | NUR ---
Problems reprioritized. Patient report given, questions answered & plan of care reviewed with Savita NI.
--- NOTE | 2020-08-20 06:26 | NUR ---
Patient in room [facility] 3015. I have received report from Ginny NI and had the opportunity to ask questions and assume patient care. Patient in bed awake. Offers no complaints. Addendum: 08/20/20 at 0628 by Savita Tripp RN Report was from Alisha.
--- NOTE | 2020-08-20 06:30 | NUR ---
[place] documentation: I have reviewed and agree with all interventions, assessments performed, and Medication administration documented by Lilian RN.
[2020-08-20 07:00] VITALS: BP 110/73
[2020-08-20] MEDS: metoprolol succinate 25mg (24-HOUR) SR. Tablet PO SCH (09:06)
[2020-08-20] MEDS: pantoprazole 40mg Tablet.DR PO SCH (09:06)
[2020-08-20] MEDS: thiamine 100mg tablet PO SCH (09:06)
[2020-08-20] MEDS: gabapentin 300mg capsule PO SCH ×2 (09:07→20:03)
[2020-08-20] MEDS: multivitamins, therapeutics tablet PO SCH (09:07)
[2020-08-20] MEDS: potassium Cl 20 mEq SR tablet PO PRN ×3 (09:07→20:02)
[2020-08-20] MEDS: amLODIPine 5mg tablet PO SCH ×2 (09:07→20:06)
[2020-08-20] MEDS: docusate sod 100mg capsule PO SCH ×2 (09:08→20:00)
[2020-08-20] MEDS: enoxaparin 40mg/0.4ml syringe SUBCUT SCH (09:08)
[2020-08-20] MEDS: TOLVAPTAN 30 MG TABLET PO SCH (09:08)
[2020-08-20] MEDS: nicotine 21mg patch - 24 hr TD SCH (09:09)
[2020-08-20] MEDS: folic acid 1mg tablet PO SCH (09:09)
[2020-08-20 11:00] VITALS: BP 107/69
[2020-08-20] MEDS: ondansetron/PF 4mg/2ml inj IV PRN ×2 (13:04→20:07)
[2020-08-20] MEDS: sodium chloride 0.45% 1,000 ML IV SCH (13:10)
[2020-08-20 15:00] VITALS: BP 115/71
[2020-08-20] MEDS: acetaminophen 325mg tablet PO PRN (15:31)
[2020-08-20 18:00] VITALS: BP 116/73
--- NOTE | 2020-08-20 18:15 | NUR ---
Patient in room PCU 3015. I have received report from Savita NI and had the opportunity to ask questions and assume patient care.
--- NOTE | 2020-08-20 18:17 | NUR ---
[place] documentation: I have reviewed and agree with all interventions, assessments performed and documented by LAST Campbell. [place] Medication Administration: For this medication-pass time frame, all medication were reviewed, dispensed, administered and documented per hospital policy by LAST Cmapbell.
--- NOTE | 2020-08-20 18:55 | NUR ---
Patient in room PCU 3015. I have received report from Savita NI and had the opportunity to ask questions and assume patient care.
[2020-08-20] MEDS: clonazePAM 0.5mg tablet PO SCH (20:03)
[2020-08-20] MEDS ORDERED: traZODone 50mg tablet PO SCH (21:00)
[2020-08-20 22:00] VITALS: BP 112/77
[2020-08-21 02:00] VITALS: BP 95/65
[2020-08-21 03:55] LABS: ALANINE AMINOTRANSFERASE 55 U/L (12-78); ALBUMIN/GLOBULIN RATIO 1.2 (1.1-1.5); ALKALINE PHOSPHATASE 65 IU/L (46-116); AMYLASE 40 U/L (25-115); ANION GAP 5 (8-16); ASPARTATE AMINO TRANSFERASE 49 U/L (10-37); BILIRUBIN,TOTAL 0.6 MG/DL (0.1-1.0); BLOOD UREA NITROGEN 3 MG/DL (7-18); BUN/CREATININE RATIO 5.7 (6.6-38.0); CALCIUM 9.3 MG/DL (8.5-10.1); CHLORIDE 102 MMOL/L (99-107); CREATININE 0.53 MG/DL (0.40-0.90); GLUCOSE 89 MG/DL (70-104); LIPASE 116 U/L (73-393); MAGNESIUM 1.5 MG/DL (1.5-2.4); PHOSPHORUS 4.4 MG/DL (2.3-4.5); POTASSIUM 4.1 MMOL/L (3.5-5.1); SODIUM 135 MMOL/L (135-145); TOTAL CARBON DIOXIDE 28.4 MMOL/L (24-32); TOTAL PROTEIN 5.6 G/DL (6.4-8.2); eGFR > 90 ML/MIN
[2020-08-21 04:40] LABS: BASOPHILS % (AUTO) 1.1 % (0-1); EOSINOPHILS # (AUTO) 0.2 X10'3 (0-0.9); EOSINOPHILS % (AUTO) 5.1 % (0-6); HEMATOCRIT 29.1 % (35.0-45.0); LYMPHOCYTES # (AUTO) 0.6 X10'3 (1.1-4.8); LYMPHOCYTES % (AUTO) 18.8 % (21-51); MEAN CORPUSCULAR HEMOGLOBIN 31.8 PG (27.0-31.0); MEAN CORPUSCULAR HGB CONC 34.4 g/dL (33.0-36.5); MEAN CORPUSCULAR VOLUME 92.4 FL (78-98); MEAN PLATELET VOLUME 6.7 FL (7.4-10.4); MONOCYTES # (AUTO) 0.6 X10'3 (0-0.9); MONOCYTES % (AUTO) 18.9 % (2-12); NEUTROPHILS # (AUTO) 1.8 X10'3 (1.8-7.7); NEUTROPHILS % (AUTO) 56.1 % (42-75); PLATELET COUNT 204 X10'3 (140-440); RED BLOOD COUNT 3.15 X10'6 (4.20-5.60); RED CELL DISTRIBUTION WIDTH 12.2 % (11.5-14.5); WHITE BLOOD COUNT 3.1 X10'3 (4.5-11.0)
--- NOTE | 2020-08-21 06:17 | NUR ---
Patient in room PCU 3015. I have received report from Alisha NI and had the opportunity to ask questions and assume patient care. Patient asleep in bed resting. Offers no complaints. All immediate needs met at this time.
--- NOTE | 2020-08-21 06:21 | NUR ---
Patient in room PCU 3015. I have received report from Clare NI and had the opportunity to ask questions and assume patient care. Patient resting.
--- NOTE | 2020-08-21 06:26 | NUR ---
Problems reprioritized. Patient report given, questions answered & plan of care reviewed with Savita NI.
--- NOTE | 2020-08-21 06:33 | NUR ---
[place] documentation: I have reviewed and agree with all interventions, assessments performed, and Medication administration documented by Cristel NI.
--- NOTE | 2020-08-21 06:34 | NUR ---
Problems reprioritized. Patient report given, questions answered & plan of care reviewed with Savita NI.
[2020-08-21 07:00] VITALS: BP 110/68
[2020-08-21] MEDS: nicotine 21mg patch - 24 hr TD SCH (07:58)
[2020-08-21] MEDS: clonazePAM 0.5mg tablet PO SCH (07:58)
[2020-08-21] MEDS: enoxaparin 40mg/0.4ml syringe SUBCUT SCH (07:58)
[2020-08-21] MEDS: gabapentin 300mg capsule PO SCH (07:59)
[2020-08-21] MEDS: docusate sod 100mg capsule PO SCH (07:59)
[2020-08-21] MEDS: folic acid 1mg tablet PO SCH (07:59)
[2020-08-21] MEDS: metoprolol succinate 25mg (24-HOUR) SR. Tablet PO SCH (07:59)
[2020-08-21] MEDS: amLODIPine 5mg tablet PO SCH (08:00)
[2020-08-21] MEDS: multivitamins, therapeutics tablet PO SCH (08:00)
[2020-08-21] MEDS: pantoprazole 40mg Tablet.DR PO SCH (08:00)
[2020-08-21] MEDS ORDERED: citalopram 20mg tablet PO SCH (08:00)
[2020-08-21] MEDS: thiamine 100mg tablet PO SCH (08:03)
[2020-08-21 11:00] VITALS: BP 107/76
--- NOTE | 2020-08-21 11:23 | NUR ---
Initial: Pt admit with urinary retention and hyponatremia. Serum Na 106 on admit, now WNL at 135. Pt A/O x 1 on admit, now A/O x 4 and PO intake has significantly improved with average 50-75% PO intake up to 100% PO intake at two most recent meals meeting estimated nutrient needs. LBM 08/20. No nutrition intervention warranted at this time. Will continue to follow and make recommendations as appropriate. Recommendations: 1) Continue regular diet 2) Continue routine Thiamine and Folic acid for EtOH hx 3) Bowel care per rx 4) Scaled weights per rx Addendum: 08/21/20 at [address] Amended: Links added.
[2020-08-21] MEDS ORDERED: ipratropium/albuterol 3ml nebule NEB ONE (13:05)
[2020-08-21] MEDS ORDERED: IPRA3AMP31 IH (13:14)
[2020-08-21] MEDS ORDERED: MULT-25 PO (13:14)
[2020-08-21] MEDS ORDERED: thiamine tablet PO (13:14)
[2020-08-21] MEDS ORDERED: CLON0.5T4 PO (13:14)
[2020-08-21] MEDS ORDERED: folic acid tablet PO (13:14)
[2020-08-21] MEDS ORDERED: CLON-527 PO (13:26)
--- NOTE | 2020-08-21 14:30 | NUR ---
Discontinued quintero, patient tolerated well. Will monitor for patient void.
--- NOTE | 2020-08-21 16:00 | NUR ---
Patient voided. No problems voiding.
--- NOTE | 2020-08-21 18:18 | NUR ---
Problems reprioritized. Patient report given, questions answered & plan of care reviewed with Clare NI.
--- NOTE | 2020-08-21 18:30 | NUR ---
Patient discharged Patient was alert, oriented, stable, and had all belongings at discharge. Left with family member in private vehicle. Patient left with positive attitude and disposition.
--- NOTE | 2020-08-21 18:35 | NUR ---
Patient in room PCU 3015. I have received report from Savita NI and had the opportunity to ask questions and assume patient care.
== END 2020-08-21 18:31 | disposition home or self-care (01) | DRG 468 ==
LOC: ER 23:17 → ED HOLD 08-16 01:43 → ICU 2S 08-16 07:38 → PCU 3S 08-18 22:30
PROVIDERS: ADMIT Internal Medicine Critical Care Medicine; ATTEND Internal Medicine Critical Care Medicine
PROC: 02HV33Z Insertion of Infusion Device into Superior Vena Cava, Percutaneous Approach (ICD-10-PCS; principal; 2020-08-15)
PROC: B548ZZA Ultrasonography of Superior Vena Cava, Guidance (ICD-10-PCS; 2020-08-15)
PROC: 0T9B70Z Drainage of Bladder with Drainage Device, Via Natural or Artificial Opening (ICD-10-PCS; 2020-08-16)
PROC: 3E0234Z Introduction of Serum, Toxoid and Vaccine into Muscle, Percutaneous Approach (ICD-10-PCS; 2020-08-17)
DX: R33.9 Retention of urine, unspecified (principal); E22.2 Syndrome of inappropriate secretion of antidiuretic hormone; E86.9 Volume depletion, unspecified; I10 Essential (primary) hypertension; F17.210 Nicotine dependence, cigarettes, uncomplicated; F32.9 Major depressive disorder, single episode, unspecified; F10.10 Alcohol abuse, uncomplicated; J44.9 Chronic obstructive pulmonary disease, unspecified; F41.9 Anxiety disorder, unspecified; G89.29 Other chronic pain; M54.9 Dorsalgia, unspecified; Z85.89 Personal history of malignant neoplasm of other organs and systems; Z23 Encounter for immunization; Z79.899 Other long term (current) drug therapy
CPT/HCPCS: 36415; 36556; 71045; 74176; 80048; 80053; 80320; 81001; 81003; 82150; 82948; 83690; 83735; 83930; 83935; 84100; 84295; 84300; 84443; 85007; 85025; 85610; 85730; 87081; 90732; 93005; 94640; 94760; 96374; 97116; 97161; 97530; 99291; G0378; J1650; J2060; J2405; J3411; J3480; J7030; J7131

== ENCOUNTER 2022-06-05 10:28 | Inpatient (IN) | payer MEDICAID ==
[~2022-06-05] VITALS: Ht 160 cm; Wt 44.5 kg
[~2022-06-05 10:28] MED LIST changes: +ALB0.5UD IH; +AMLO5TAB16 PO; +ATRIN INH; -CITA20TA28 PO; +CITA40TA17 PO; +CLON-527 PO; -CLON-528 PO; -GABA-532 PO; -IBUP-1984 PO; +IPRA3AMP31 IH; -IRBE150T51 PO; +METO-395 PO; +MULT-25 PO; +folic acid tablet PO; +thiamine tablet PO
[2022-06-05] MEDS ORDERED: normal saline 1000ML IV soln IVB ONE ×2 (10:50→10:55)
[2022-06-05] MEDS ORDERED: pantoprazole IV 80 MG in normal saline 100ml IV soln 100 ML IV ONE (10:55)
[2022-06-05] MEDS ORDERED: pantoprazole 40MG/NS 100ML BAG 100 ML IV ONE (10:55)
[2022-06-05 10:56] LABS: BASOPHILS % (AUTO) 0.5 % (0-1); EOSINOPHILS # (AUTO) 0.3 X10'3 (0-0.9); EOSINOPHILS % (AUTO) 3.9 % (0-6); HEMATOCRIT 29.7 % (35.0-45.0); LYMPHOCYTES # (AUTO) 2.4 X10'3 (1.1-4.8); LYMPHOCYTES % (AUTO) 33.2 % (21-51); MEAN CORPUSCULAR HEMOGLOBIN 28.4 PG (27.0-31.0); MEAN CORPUSCULAR HGB CONC 33.7 g/dL (33.0-36.5); MEAN CORPUSCULAR VOLUME 84.4 FL (78-98); MEAN PLATELET VOLUME 7.2 FL (7.4-10.4); MONOCYTES % (AUTO) 13.7 % (2-12); NEUTROPHILS # (AUTO) 3.5 X10'3 (1.8-7.7); NEUTROPHILS % (AUTO) 48.7 % (42-75); PLATELET COUNT 106 X10'3 (140-440); RED BLOOD COUNT 3.52 X10'6 (4.20-5.60); RED CELL DISTRIBUTION WIDTH 13.8 % (11.5-14.5); WHITE BLOOD COUNT 7.1 X10'3 (4.5-11.0)
[2022-06-05 11:05] LABS: ALANINE AMINOTRANSFERASE 8 U/L (12-78); ALBUMIN 1.8 G/DL (3.4-5.0); ALBUMIN/GLOBULIN RATIO 0.5 (1.1-1.5); ALKALINE PHOSPHATASE 60 IU/L (46-116); ANION GAP 8 (8-16); ASPARTATE AMINO TRANSFERASE 14 U/L (10-37); BILIRUBIN,TOTAL 0.6 MG/DL (0.1-1.0); BLOOD UREA NITROGEN 8 MG/DL (7-18); CALCIUM 7.8 MG/DL (8.5-10.1); CHLORIDE 98 MMOL/L (99-107); CREATININE 0.57 MG/DL (0.40-0.90); GLUCOSE 99 MG/DL (70-104); POTASSIUM 4.2 MMOL/L (3.5-5.1); SODIUM 130 MMOL/L (135-145); TOTAL CARBON DIOXIDE 23.7 MMOL/L (24-32); TOTAL PROTEIN 5.4 G/DL (6.4-8.2); eGFR > 90 ML/MIN
[2022-06-05] MEDS ORDERED: pantoprazole 40MG/NS 100ML BAG 100 ML IV SCH (11:44)
[2022-06-05] MEDS: pantoprazole 40MG/NS 100ML BAG 100 ML IV SCH ×2 (11:59→12:00)
[2022-06-05] MEDS ORDERED: acetaminophen 325mg tablet PO PRN ×2 (13:30)
[2022-06-05] MEDS ORDERED: ondansetron/PF 4mg/2ml inj IV PRN (13:30)
[2022-06-05] MEDS ORDERED: mag hydrox/Alum hydrox/simeth 30ml oral suspension PO PRN (13:30)
[2022-06-05] MEDS ORDERED: magnesium 2GM in 50ml NS 50 ML IV PRN (13:30)
[2022-06-05] MEDS ORDERED: POTASSIUM BICARB 20meq eff tab 20 MEQ TABLET.EFF PO PRN ×2 (13:30)
[2022-06-05] MEDS ORDERED: potassium CL 10mEq/100ml bag 100 ML IV PRN (13:30)
[2022-06-05] MEDS ORDERED: magnesium Cl slow-release 64mg tablet PO PRN (13:30)
[2022-06-05] MEDS ORDERED: magnesium 4gm in 100ml NS 100 ML IV PRN (13:30)
[2022-06-05] MEDS ORDERED: pregabalin 75mg capsule PO ONE ×2 (13:50→14:25)
[2022-06-05] MEDS ORDERED: metroNIDAZOLE-Flagyl 500mg/NS 100 ML IV STA (14:01)
[2022-06-05] MEDS ORDERED: levoFLOXACIN-Levaquin 500mg/D5 100 ML IV ONE (14:05)
[2022-06-05 14:09] LABS: CLARITY,URINE CLEAR (Clear); COLOR,URINE YELLOW (Yellow); GLUCOSE, URINE NEGATIVE (Neg); KETONES,URINE NEGATIVE (Neg); LEUKOCYTE ESTERASE ,URINE NEGATIVE (Neg); NITRITES, URINE NEGATIVE (Neg); OCCULT BLOOD,URINE NEGATIVE (Neg); PROTEIN,URINE NEGATIVE (Neg); UROBILINOGEN,URINE 0.2 E.U/dL (0.2-1.0)
[2022-06-05 14:14] LABS: UA COLLECTION TYPE CLN CATCH MIDSTREAM
[2022-06-05] MEDS ORDERED: TIOT18CA3 INH (14:43)
[2022-06-05] MEDS ORDERED: TIZA4CAP6 PO (14:43)
[2022-06-05] MEDS ORDERED: CHOL100017 PO (14:43)
[2022-06-05] MEDS ORDERED: CLON-369 PO (14:43)
[2022-06-05] MEDS ORDERED: ALBU17AE26 IH (14:43)
[2022-06-05] MEDS ORDERED: PANT40TA54 PO (14:43)
[2022-06-05] MEDS ORDERED: PREG100C55 PO (14:43)
[2022-06-05] MEDS ORDERED: CITA-109 PO (14:43)
[2022-06-05] MEDS ORDERED: MAGN400T52 PO (14:43)
[2022-06-05] MEDS ORDERED: KEN0.1O TOP (14:43)
[2022-06-05] MEDS ORDERED: FERR324T2 PO (14:43)
[2022-06-05] MEDS ORDERED: TRAM50TA2 PO (14:43)
[2022-06-05] MEDS ORDERED: DICL100G30 TOP (14:43)
[2022-06-05] MEDS ORDERED: albuterol 2.5 MG/3 ML nebule NEB PRN (15:15)
[2022-06-05 15:42] LABS: OCCULT BLOOD STOOL POSITIVE (Neg)
[2022-06-05] MEDS: normal saline 1000ml 1,000 ML IV SCH ×2 (16:00→20:28)
[2022-06-05 19:00] VITALS: BP 149/100
[2022-06-05] MEDS: traMADol 50MG tablet PO PRN (19:19)
--- NOTE | 2022-06-05 19:52 | NUR ---
Patient in room ED 9. I have received report from JAROD RN in ER and had the opportunity to ask questions and assume patient care when patient arrives.
[2022-06-05] MEDS: K and/or MAG REPLACEMENT MC SCH (20:00)
--- NOTE | 2022-06-05 20:14 | NUR ---
Patient on the unit. Will continue to monitor.
[2022-06-05] MEDS: pantoprazole 40mg Tablet.DR PO SCH (20:25)
[2022-06-05] MEDS: pregabalin 25mg capsule PO SCH (20:26)
[2022-06-05] MEDS: ipratropium 0.5 MG/2.5ML nebule NEB SCH (20:44)
[2022-06-05 22:00] VITALS: BP 149/100
[2022-06-06] MEDS: traMADol 50MG tablet PO PRN ×2 (01:30→09:18)
[2022-06-06] MEDS: ipratropium 0.5 MG/2.5ML nebule NEB SCH ×2 (03:07→08:52)
[2022-06-06] MEDS: normal saline 1000ml 1,000 ML IV SCH (05:44)
[2022-06-06 06:00] VITALS: BP 141/79
--- NOTE | 2022-06-06 06:21 | NUR ---
Problems reprioritized. Patient report given, questions answered & plan of care reviewed with MIMI NI.
[2022-06-06 07:07] LABS: BASOPHILS % (AUTO) 0.6 % (0-1); EOSINOPHILS # (AUTO) 0.2 X10'3 (0-0.9); HEMOGLOBIN 9.7 g/dl (12.0-16.0); LYMPHOCYTES # (AUTO) 1.9 X10'3 (1.1-4.8); LYMPHOCYTES % (AUTO) 32.6 % (21-51); MEAN CORPUSCULAR HEMOGLOBIN 28.2 PG (27.0-31.0); MEAN CORPUSCULAR HGB CONC 33.4 g/dL (33.0-36.5); MEAN CORPUSCULAR VOLUME 84.5 FL (78-98); MEAN PLATELET VOLUME 6.7 FL (7.4-10.4); MONOCYTES # (AUTO) 0.8 X10'3 (0-0.9); MONOCYTES % (AUTO) 13.9 % (2-12); NEUTROPHILS # (AUTO) 2.9 X10'3 (1.8-7.7); NEUTROPHILS % (AUTO) 49.9 % (42-75); PLATELET COUNT 229 X10'3 (140-440); RED BLOOD COUNT 3.44 X10'6 (4.20-5.60); RED CELL DISTRIBUTION WIDTH 13.7 % (11.5-14.5); WHITE BLOOD COUNT 5.9 X10'3 (4.5-11.0)
[2022-06-06 07:18] LABS: ALBUMIN 1.8 G/DL (3.4-5.0); ALBUMIN/GLOBULIN RATIO 0.5 (1.1-1.5); ANION GAP 9 (8-16); ASPARTATE AMINO TRANSFERASE 12 U/L (10-37); BILIRUBIN,TOTAL 0.5 MG/DL (0.1-1.0); BLOOD UREA NITROGEN 8 MG/DL (7-18); BUN/CREATININE RATIO 15.7 (6.6-38.0); CALCIUM 7.5 MG/DL (8.5-10.1); CHLORIDE 103 MMOL/L (99-107); CREATININE 0.51 MG/DL (0.40-0.90); GLUCOSE 84 MG/DL (70-104); SODIUM 134 MMOL/L (135-145); TOTAL CARBON DIOXIDE 21.7 MMOL/L (24-32); TOTAL PROTEIN 5.2 G/DL (6.4-8.2); eGFR > 90 ML/MIN
[2022-06-06 07:19] LABS: ALANINE AMINOTRANSFERASE 9 U/L (12-78); ALKALINE PHOSPHATASE 58 IU/L (46-116)
[2022-06-06] MEDS: pregabalin 25mg capsule PO SCH (07:36)
[2022-06-06] MEDS: pantoprazole 40mg Tablet.DR PO SCH (07:36)
[2022-06-06 08:00] VITALS: BP 132/85
[2022-06-06] MEDS ORDERED: ferrous gluconate 324mg tablet PO SCH (08:00)
[2022-06-06] MEDS ORDERED: citalopram 20mg tablet PO SCH (08:00)
[2022-06-06] MEDS ORDERED: cholecalciferol (vitamin D3) 1,000 unit (25mcg) tablet PO SCH (08:00)
[2022-06-06] MEDS: K and/or MAG REPLACEMENT MC SCH (08:00)
[2022-06-06 10:00] VITALS: BP 132/85
[2022-06-06 10:11] VITALS: BP_SYST 139; BP_SYST 149; BP_DIAS 90; BP_DIAS 91
--- NOTE | 2022-06-06 10:43 | NUR ---
Malnutrition consult: Pt reports wt loss with decreased appetite per malnutrition risk screen with RN. Current documented wt is not scaled however is consistent with most recent scaled wt hx in EMR, documented wt 41.1 kg 08/19/20 resulting in a BMI of 16.6. Pt possibly chronically underweight. Pt on a regular diet and eating well, documented with 75% PO intake of first meal. Pt with no documented decrease in muscle strength or edema. Pt currently lacks a minimum of two criteria for malnutrition. Will continue to follow and further monitor qualifying criteria for malnutrition. Addendum: 06/06/22 at [address] Amended: Links added.
== END 2022-06-06 11:45 | disposition home or self-care (01) | DRG 207 ==
LOC: ER 10:28 → ED HOLD 13:37 → EDBEDREQ 19:32 → ORTHO 4S 20:10
PROVIDERS: ADMIT Internal Medicine; ATTEND Internal Medicine
DX: I95.9 Hypotension, unspecified (principal); E87.1 Hypo-osmolality and hyponatremia; D64.9 Anemia, unspecified; G89.29 Other chronic pain; I10 Essential (primary) hypertension; K57.92 Diverticulitis of intestine, part unspecified, without perforation or abscess without bleeding; W18.39XA Other fall on same level, initial encounter; K92.2 Gastrointestinal hemorrhage, unspecified; F10.20 Alcohol dependence, uncomplicated; F32.A Depression, unspecified; F41.9 Anxiety disorder, unspecified; M54.9 Dorsalgia, unspecified; R41.3 Other amnesia; Y93.89 Activity, other specified; Y92.89 Other specified places as the place of occurrence of the external cause; Y99.8 Other external cause status; Z87.891 Personal history of nicotine dependence
CPT/HCPCS: 36415; 70450; 71045; 74176; 80053; 81003; 82272; 83605; 83880; 84145; 84484; 85025; 86885; 86900; 86901; 87040; 87077; 87081; 87185; 89055; 93005; 93306; 94640; 94760; 96361; 96374; 99285; C9113; G0378; J7030